=== PATIENT | female | born 1945 | race Caucasian/White ===

== ENCOUNTER 2017-12-07 20:23 | Inpatient (IN) | payer MEDICARE ==
[~2017-12-07] VITALS: Ht 157.5 cm; Wt 100.8 kg
[~2017-12-07 20:23] MED LIST: ALLO300T2 PO; CLON0.1T PO; DICL1GEL7 TOPICAL; DICY10CA12 PO; ECASA81 PO; ENAL20TA PO; ESOM1CAP16 PO; FURO40TA PO; GABA600T PO; HYDR1SOL6 PO; INSU100V SQ; LEVO88TA2 PO; METO2.5T PO; POTA8CAP PO; PROP60TA PO; ROPI0.25 PO; SPIR50TA PO; SULF500T3 PO; SYSTSOL EACH EYE; VITA1000 PO; VITA250T3 PO; [UNRECOGNIZED DRUG - OTHER] PO
[2017-12-07 20:34] VITALS: BP 134/61; PULSE 59; RESP 4; TEMP 98.5; O2SAT 97
[2017-12-07] MEDS ORDERED: DICY10CA12 PO (20:50)
--- NOTE | 2017-12-07 20:56 | PD ---
HPI Chief Complaint: Syncope/Near-Syncope Time Seen by Provider: 20:36 Travel History International Travel<30 days: No Contact w/Intl Traveler<30days: No Traveled to known affect area: No History of Present Illness HPI Patient is a 72-year-old female lives at home she's been getting progressively more confused and weak at home she feels generalized malaise confused her doctor called her and told her her blood test showed her ammonia level was excessively high. This is the first time it is happened to her and she is not on lactulose. Patient comes to the ER paramedics report that she was hypotensive until laid supine . In stretcher laying flat on arrival her pressure is 134/70 and she is able to converse with me and tell me her history, however she is listless sighing and moments of forgetfulness.. past medical history is hepatitis C from transfusion and she has a history of UTIs in the past as well. Pt lab work was done by her PCP few days ago. PFSH Past Medical History Hx Anticoagulant Therapy: No Arthritis: Yes Autoimmune Disease: No Anxiety: Yes Depression: No Heart Rhythm Problems: Yes (murmur irregular beat) Cancer: Yes (LIVER) Cardiovascular Problems: Yes High Cholesterol: Yes Chemotherapy: Yes Chest Pain: No Congestive Heart Failure: No Cirrhosis: Yes Cerebrovascular Accident: Yes Diabetes: Yes Patient Takes Glucophage: No Diminished Hearing: No Endocrine: Yes (HYPOTHYROID) Gastrointestinal Disorders: Yes GERD: Yes Genitourinary: Yes Headaches: Yes Hepatitis: Yes (CIRRHOSIS, HEPATITIS C) Hiatal Hernia: Yes Hypertension: Yes Immune Disorder: Yes (HX CHEMO) Kidney Stones: No Musculoskeletal: Yes (OSTEOARTHRITIS, OSTEOPOROSIS, FIBROMYALGIA) Neurologic: Yes (NEUROPATHY, HX CVA, TIA X2) Psychiatric: Yes Reproductive: No Respiratory: No Migraines: No Radiation Therapy: No Renal Failure: No Seizures: No Thyroid Disease: Yes Ulcer: No Influenza Vaccination: Yes : 5 Para: 3 Miscarriage: 2 Past Surgical History Abdominal Surgery: Yes (CHOLECYSTECOMY, APPENDECTOMY) AICD: No Appendectomy: Yes Arteriovenous Shunt: No Cardiac Surgery: No Cholecystectomy: Yes Ear Surgery: No Endocrine Surgery: No Eye Surgery: No Genitourinary Surgery: No Gynecologic Surgery: Yes (ARACELI) Hysterectomy: Yes (FULL) Insulin Pump: No Joint Replacement: No Neurologic Surgery: No Oral Surgery: No Pacemaker: No Other Surgery: Yes (TUMORS UNDER BILATERAL ARMS) Social History Alcohol Use: No Tobacco Use: No Substance Use: No Allergies-Medications (Allergen,Severity, Reaction): Coded Allergies: No Known Allergies (Unverified , 12/01/17) Reported Meds & Prescriptions Reported Meds & Active Scripts Active Reported Dicyclomine (Dicyclomine HCl) 10 Mg Cap 10 Mg PO DAILY Potassium Chloride ER (Potassium Chloride) 8 Meq Cap 8 Meq PO DAILY Metolazone 2.5 Mg Tab 2.5 Mg PO DAILY Ropinirole 0.25 Mg Tab 0.25 Mg PO HS Vitamin C (Ascorbic Acid) 250 Mg Tab 1,000 Mg PO DAILY Vitamin D-1000 (Cholecalciferol) 1,000 Unit Tab 1,000 Units PO BID Clonidine (Clonidine HCl) 0.1 Mg Tab 0.1 Mg PO BID Spironolactone 50 Mg Tab 50 Mg PO DAILY Propranolol (Propranolol HCl) 60 Mg Tab 60 Mg PO DAILY Levothyroxine (Levothyroxine Sodium) 88 Mcg Tab 88 Mcg PO DAILY Foltx (q-Hdvqgulobdnj-Kddhumf B6-Vitmin B12) 1.13-25-2 Mg Tab 1 Tab PO DAILY Humalog Mix 75-25 Inj (Insulin Lispro Protam/Lispro Human) 1,000 Unit/10 Ml Susp 90 Units SQ BID Hydrocodon-Acetamin 7.5-325/15 (Hydrocodone/Acetaminophen) 7.5 Mg-325 Mg/15 Ml ( 15 Ml) Solution 1 Tab PO DAILY Gabapentin 600 Mg Tab 600 Mg PO TID Furosemide 40 Mg Tab 40 Mg PO DAILY Esomeprazole DR 40 Mg Capdr 40 Mg PO DAILY Enalapril (Enalapril Maleate) 20 Mg Tab 20 Mg PO BID Diclofenac Topical 1% Gel 1 Applic TOPICAL QID Aspirin DR (Aspirin) 81 Mg Tabdr 81 Mg PO DAILY Allopurinol 300 Mg Tab 300 Mg PO DAILY Review of Systems ROS Limitations: Altered Mental Status, Other: (confusion . ) Except as stated in HPI: all other systems reviewed are Neg Musculoskeletal: Positive: Myalgias, Weakness Neurologic: Positive: Change in Mentation Physical Exam Narrative GENERAL: Mildly obese awake slight confusion but able to relate a good history SKIN: Warm and dry. HEAD: Atraumatic. Normocephalic. EYES: Pupils equal and round. No scleral icterus. No injection or drainage. ENT: No nasal bleeding or discharge. Mucous membranes pink and moist. NECK: Trachea midline. No JVD. CARDIOVASCULAR: Regular rate and rhythm. RESPIRATORY: No accessory muscle use. Clear to auscultation. Breath sounds equal bilaterally. GASTROINTESTINAL: Abdomen obese mild epigastric, slightly distended. Hepatic and splenic margins not palpable. MUSCULOSKELETAL: Extremities without clubbing, cyanosis, or edema. No obvious deformities. NEUROLOGICAL: Awake and alert. No obvious cranial nerve deficits. Motor grossly within normal limits. Five out of 5 muscle strength in the arms and legs. Normal speech. PSYCHIATRIC: Appropriate mood and affect; insight and judgment normal. Data Data Last Documented VS Vital Signs Date Time Temp Pulse Resp B/P (MAP) Pulse Ox O2 Delivery O2 Flow Rate FiO2 12/07/17 22:00 61 16 123/75 (91) 99 Room Air 12/07/17 20:34 98.5 Orders Orders Electrocardiogram (12/07/17 20:37) Complete Blood Count With Diff (12/07/17 20:37) Comprehensive Metabolic Panel (12/07/17 20:37) Ckmb (Isoenzyme) Profile (12/07/17 20:37) Troponin I (12/07/17 20:37) B-Type Natriuretic Peptide (12/07/17 20:37) Lipase (12/07/17 20:37) Magnesium (Mg) (12/07/17 20:37) Ammonia (12/07/17 20:37) Thyroid Stimulating Hormone (12/07/17 20:37) Phosphorus (Po4) (12/07/17 20:37) Chest, Single Ap (12/07/17 20:37) Lactulose Liq (Lactulose Liq) (12/07/17 21:00) Lactic Acid (12/07/17 21:06) Urinalysis - C+S If Indicated (12/07/17 21:37) Urine Culture (12/07/17 21:45) Ceftriaxone Inj (Rocephin Inj) (12/07/17 22:30) Admit To Inpatient (12/07/17 ) Vital Signs (Adult) Q4H (12/07/17 22:49) Activity Oob With Assistance (12/07/17 22:49) [employer] / Telemetry .CONTINUOUS (12/07/17 22:49) Sodium Chloride 0.9% Flush (Ns Flush) (12/07/17 23:00) Sodium Chloride 0.9% Flush (Ns Flush) (12/08/17 09:00) Comprehensive Metabolic Panel (12/08/17 06:00) Complete Blood Count With Diff (12/08/17 06:00) Pt Request For Service (12/07/17 22:49) Case Management Consult (12/07/17 22:49) Naloxone Inj (Narcan Inj) (12/07/17 23:00) Inpatient Certification (12/07/17 ) Lactulose Liq (Lactulose Liq) (12/08/17 09:00) Lactulose Liq (Lactulose Liq) (12/08/17 03:00) Admit Order (Ed Use Only) (12/07/17 22:49) Labs Laboratory Tests Test 12/07/17 20:54 12/07/17 21:15 12/07/17 21:45 White Blood Count 13.0 TH/MM3 Red Blood Count 3.43 MIL/MM3 Hemoglobin 11.9 GM/DL Hematocrit 35.5 % Mean Corpuscular Volume 103.3 FL Mean Corpuscular Hemoglobin 34.6 PG Mean Corpuscular Hemoglobin Concent 33.5 % Red Cell Distribution Width 13.8 % Platelet Count 317 TH/MM3 Mean Platelet Volume 8.7 FL Neutrophils (%) (Auto) 69.9 % Lymphocytes (%) (Auto) 17.2 % Monocytes (%) (Auto) 9.8 % Eosinophils (%) (Auto) 2.4 % Basophils (%) (Auto) 0.7 % Neutrophils # (Auto) 9.1 TH/MM3 Lymphocytes # (Auto) 2.2 TH/MM3 Monocytes # (Auto) 1.3 TH/MM3 Eosinophils # (Auto) 0.3 TH/MM3 Basophils # (Auto) 0.1 TH/MM3 CBC Comment DIFF FINAL Differential Comment Blood Urea Nitrogen 37 MG/DL Creatinine 1.70 MG/DL Random Glucose 147 MG/DL Total Protein 8.3 GM/DL Albumin 3.4 GM/DL Calcium Level 9.4 MG/DL Phosphorus Level 3.1 MG/DL Magnesium Level 1.9 MG/DL Alkaline Phosphatase 186 U/L Aspartate Amino Transf (AST/SGOT) 67 U/L Alanine Aminotransferase (ALT/SGPT) 45 U/L Total Bilirubin 0.7 MG/DL Sodium Level 138 MEQ/L Potassium Level 4.6 MEQ/L Chloride Level 100 MEQ/L Carbon Dioxide Level 31.2 MEQ/L Anion Gap 7 MEQ/L Estimat Glomerular Filtration Rate 30 ML/MIN Ammonia 118 MCMOL/L Total Creatine Kinase 99 U/L Troponin I 0.02 NG/ML B-Type Natriuretic Peptide 70 PG/ML Lipase 380 U/L Thyroid Stimulating Hormone 3rd Gen 5.210 uIU/ML Lactic Acid Level 2.0 mmol/L Urine Color YELLOW Urine Turbidity HAZY Urine pH 5.0 Urine Specific [place] 1.012 Urine Protein NEG mg/dL Urine Glucose (UA) TRACE mg/dL Urine Ketones NEG mg/dL Urine Occult Blood NEG Urine Nitrite NEG Urine Bilirubin NEG Urine Urobilinogen LESS THAN 2.0 MG/DL Urine Leukocyte Esterase LARGE Urine WBC 32 /hpf Urine WBC Clumps FEW Urine Squamous Epithelial Cells <1 /hpf Urine Renal Epithelial Cells <1 /hpf Urine Bacteria MANY /hpf Urine Granular Casts 1 /lpf Microscopic Urinalysis Comment CATH-CULTURE IND MDM Medical Decision Making Medical Screen Exam Complete: Yes Emergency Medical Condition: Yes Differential Diagnosis Patient is in the ER confused secondary to encephalopathy secondary to liver failure or altered mentally from UTI or sepsis or medication overdose or other causes of altered mental status including hypoglycemia , fever other Narrative Course Patient's ammonia comes back at 118 she is given lactulose her urine is infected she is given ceftriaxone and admitted to the medical service for further evaluation and management of her encephalopathy secondary to elevated ammonia levels as well as seeing of her urinary tract infection is Adding to her confusion as well both will be treated in the ER and a continued to be treated on the floor for further about Diagnosis Primary Impression: Metabolic encephalopathy Additional Impressions: UTI (urinary tract infection) Qualified Codes: N30.00 - Acute cystitis without hematuria Altered mental status Qualified Codes: R41.0 - Disorientation, unspecified Admitting Information Admitting Physician Requests: Admit Condition: Stable Isiah Nunes MD Dec 07, 2017 20:56
[2017-12-07] MEDS ORDERED: LACTULOSE SYRUP 20 GM/30 ML CUP PO ONE (21:00)
[2017-12-07 21:09] LABS: AUTOMATED NEUTROPHIL # 9.1 TH/MM3 (1.8-7.7); BASOPHIL # 0.1 TH/MM3 (0-0.2); BASOPHIL % 0.7 % (0.0-2.0); EOSINOPHIL # 0.3 TH/MM3 (0-0.4); EOSINOPHIL % 2.4 % (0.0-4.0); HEMATOCRIT 35.5 % (35.0-46.0); HEMOGLOBIN 11.9 GM/DL (11.6-15.3); LYMPH % 17.2 % (9.0-44.0); LYMPHOCYTE # 2.2 TH/MM3 (1.0-4.8); MEAN CELL VOLUME 103.3 FL (80.0-100.0); MEAN CORPUSCULAR HEMOGLOBIN 34.6 PG (27.0-34.0); MEAN CORPUSCULAR HGB CONC 33.5 % (32.0-36.0); MEAN PLATELET VOLUME 8.7 FL (7.0-11.0); MONO % 9.8 % (0.0-8.0); MONOCYTE # 1.3 TH/MM3 (0-0.9); NEUT % 69.9 % (16.0-70.0); PLATELET COUNT 317 TH/MM3 (150-450); RED BLOOD COUNT 3.43 MIL/MM3 (4.00-5.30); RED CELL DISTRIBUTION WIDTH 13.8 % (11.6-17.2)
--- NOTE | 2017-12-07 21:45 | RADRPT ---
EXAM DATE/TIME: 12/07/2017 21:18 [facility] COMPARISON: CHEST SINGLE AP, June 23, 2015, 16:51. INDICATIONS : Short of breath. MEDICAL HISTORY : None. SURGICAL HISTORY : None. ENCOUNTER: Initial ACUITY: 1 day PAIN SCORE: 0/10 LOCATION: Bilateral chest FINDINGS: A single view of the chest demonstrates the lungs to be symmetrically aerated without evidence of mas s, infiltrate or effusion. Mild cardiomegaly without pulmonary vascular engorgement. Osseous structur es are intact. CONCLUSION: Mild cardiomegaly without pulmonary vascular engorgement. Brendon Monroe Jr., MD on December 07, 2017 at 21:42 Board Certified Radiologist. This report was verified electronically.
[2017-12-07 21:49] LABS: ALBUMIN 3.4 GM/DL (3.4-5.0); ALKALINE PHOSPHATASE 186 U/L (45-117); ALT (GPT) 45 U/L (10-53); AST (GOT) 67 U/L (15-37); BICARBONATE 31.2 MEQ/L (21.0-32.0); BLOOD UREA NITROGEN 37 MG/DL (7-18); CALCIUM 9.4 MG/DL (8.5-10.1); CHLORIDE 100 MEQ/L (98-107); GLOMERULAR FILTRATION RATE 30 ML/MIN (>89); GLUCOSE,RANDOM 147 MG/DL (74-106); LIPASE 380 U/L (73-393); MAGNESIUM 1.9 MG/DL (1.5-2.5); PHOSPHORUS 3.1 MG/DL (2.5-4.9); SODIUM (NA) 138 MEQ/L (136-145); TOTAL BILIRUBIN ADULT 0.7 MG/DL (0.2-1.0); TOTAL PROTEIN 8.3 GM/DL (6.4-8.2); TROPONIN I 0.02 NG/ML (0.02-0.05)
[2017-12-07 22:00] VITALS: BP 123/75; PULSE 61; RESP 16; O2SAT 99
[2017-12-07 22:01] LABS: BACTERIA, URINE MANY /hpf; BILIRUBIN, URINE NEG (NEG); BLOOD, URINE NEG (NEG); GLUCOSE,URINE TRACE mg/dL (NEG); KETONE, URINE NEG (NEG); NITRITE,URINE NEG (NEG); RENAL EPITHELIAL CELLS <1 /hpf; SQUAMOUS EPITHELIAL CELL URINE <1 /hpf (0-5); URINE COLOR YELLOW (YELLW/STRAW); URINE LEUKOCYTE ESTERASE LARGE (NEG); WHITE BLOOD CELL CLUMPS FEW
[2017-12-07] MEDS ORDERED: cefTRIAXone INJ 1,000 MG in SODIUM CHLORIDE 0.9% INJ 100 ML IV ONE (22:30)
[2017-12-07] MEDS ORDERED: SODIUM CHLORIDE 0.9% FLUSH 10 ML FLUSH IV FLUSH PRN (23:00)
[2017-12-07] MEDS ORDERED: NALOXONE HCL 0.4 MG/ML AMP IV PUSH PRN (23:00)
[2017-12-07 23:08] VITALS: BP 110/58; PULSE 67; RESP 16; O2SAT 97
[2017-12-08] VITALS (7 sets, daily range): BP systolic 114–144; BP diastolic 54–60; PULSE 57–71; RESP 18; TEMP 96.2–98.4; O2SAT 94–99
[2017-12-08] MEDS ORDERED: LACTULOSE SYRUP 20 GM/30 ML CUP PO ONE ×2 (03:00→04:15)
--- NOTE | 2017-12-08 04:17 | HHI.HP ---
HPI Service [facility] Primary Care Physician Unknown Admission Diagnosis Elevated AMMONIA Diagnoses: Travel History International Travel<30 Days: No Contact w/Intl Traveler <30 Da: No Traveled to Known Affected Are: No History of Present Illness History from patient, ER physician communication, and review of medical records. Patient's was also present at the bedside. Patient is somewhat drowsy at the time of my exam. She however would answer questions appropriately when she wakes up. She reports that she has been out of it which is why she came to hospital. She admits she couldn't remember much. When asked, long this has been going on, she reports this pain for a while. Admits to being constipated. Denies any fever. Also complains about abdominal pain diffusely. Has had back pains and has been having outpatient workup with her doctors for this back pain. She has had multiple scans and was told she has osteoporosis, spinal fluid leakage. She also vomited 2 times in the past one week or so. Denies any blood in her stool or urine or vomitus. Patient is noted to have asterixis on examination. When asked about this, both patient and said that this has been going on for a while and she was even diagnosed with Parkinson's because of this. She has also been falling quite a bit and has been having unsteady gait. Her PCP had sent for ammonia levels last week and she finally had it done yesterday or Tuesday and was called back from PCP office to go to GI doctors office because of the lab results revealing ammonia level of 198. However she wasn't able to get an appointment with his GI doctors and therefore was sent to ER. Patient has history of liver cirrhosis secondary to hepatitis C. She was treated with Pegasys for hepatitis C. She has not been on any lactulose at home. Patient denies any prior history of GI bleed. She believes she has had paracenteses twice. Review of Systems Except as stated in HPI: all other systems reviewed are Neg Past Family Social History Past Medical History Hypertension Diabetes CAD CHF Hepatitis C Liver cirrhosis TIAs 2 Hypothyroidism Past Surgical History Cholecystectomy Appendectomy Hysterectomy EGDs and colonoscopies Allergies: Coded Allergies: No Known Allergies (Unverified , 12/01/17) Family History grandparents - all had cancer Social History Denies smoking/alcohol abuse/drug abuse. Physical Exam Vital Signs Vital Signs Date Time Temp Pulse Resp B/P (MAP) Pulse Ox O2 Delivery O2 Flow Rate FiO2 12/08/17 00:22 97.6 60 18 127/59 (81) 99 12/07/17 23:50 12/07/17 23:08 67 16 110/58 (75) 97 Room Air 12/07/17 22:00 61 16 123/75 (91) 99 Room Air 12/07/17 20:34 98.5 59 4 134/61 (85) 97 Physical Exam GENERAL: This is a well-nourished, well-developed patient, in no apparent distress. SKIN: No rashes, ecchymoses or lesions. Cool and dry. HEAD: Atraumatic. Normocephalic. No temporal or scalp tenderness. EYES: No scleral icterus. No injection or drainage. ENT: Nose without bleeding, purulent drainage or septal hematoma. Airway patent. NECK: Trachea midline. No JVD . Supple, nontender, no meningeal signs. CARDIOVASCULAR: Regular rate and rhythm without murmurs, gallops, or rubs. RESPIRATORY: Clear to auscultation. Breath sounds equal bilaterally. No wheezes , rales, or rhonchi. GASTROINTESTINAL: Abdomen soft, non-tender, nondistended. No guarding. MUSCULOSKELETAL: Extremities without clubbing, cyanosis, or edema. . No calf tenderness. NEUROLOGICAL: Quite sleepy. alert when she wakes up. Asterixis present .Motor and sensory grossly within normal limits.. Normal speech. Laboratory Laboratory Tests Test 12/07/17 20:54 12/07/17 21:15 12/07/17 21:45 White Blood Count 13.0 Red Blood Count 3.43 Hemoglobin 11.9 Hematocrit 35.5 Mean Corpuscular Volume 103.3 Mean Corpuscular Hemoglobin 34.6 Mean Corpuscular Hemoglobin Concent 33.5 Red Cell Distribution Width 13.8 Platelet Count 317 Mean Platelet Volume 8.7 Neutrophils (%) (Auto) 69.9 Lymphocytes (%) (Auto) 17.2 Monocytes (%) (Auto) 9.8 Eosinophils (%) (Auto) 2.4 Basophils (%) (Auto) 0.7 Neutrophils # (Auto) 9.1 Lymphocytes # (Auto) 2.2 Monocytes # (Auto) 1.3 Eosinophils # (Auto) 0.3 Basophils # (Auto) 0.1 CBC Comment DIFF FINAL Differential Comment Blood Urea Nitrogen 37 Creatinine 1.70 Random Glucose 147 Total Protein 8.3 Albumin 3.4 Calcium Level 9.4 Phosphorus Level 3.1 Magnesium Level 1.9 Alkaline Phosphatase 186 Aspartate Amino Transf (AST/SGOT) 67 Alanine Aminotransferase (ALT/SGPT) 45 Total Bilirubin 0.7 Sodium Level 138 Potassium Level 4.6 Chloride Level 100 Carbon Dioxide Level 31.2 Anion Gap 7 Estimat Glomerular Filtration Rate 30 Ammonia 118 Total Creatine Kinase 99 Troponin I 0.02 B-Type Natriuretic Peptide 70 Lipase 380 Thyroid Stimulating Hormone 3rd Gen 5.210 Lactic Acid Level 2.0 Urine Color YELLOW Urine Turbidity HAZY Urine pH 5.0 Urine Specific [place] 1.012 Urine Protein NEG Urine Glucose (UA) TRACE Urine Ketones NEG Urine Occult Blood NEG Urine Nitrite NEG Urine Bilirubin NEG Urine Urobilinogen LESS THAN 2.0 Urine Leukocyte Esterase LARGE Urine WBC 32 Urine WBC Clumps FEW Urine Squamous Epithelial Cells <1 Urine Renal Epithelial Cells <1 Urine Bacteria MANY Urine Granular Casts 1 Microscopic Urinalysis Comment CATH-CULTURE IND Date/Time Source Procedure Growth Status 12/07/17 21:45 Urine Clean Catch Urine Culture Pending Worksheet Result Diagram: 12/07/17205312/07/172053 Imaging Last 48 hours Impressions Chest X-Ray 12/07/172036 Signed Impressions: Service Date/Time: Thursday, December 07, 2017 21:18 - CONCLUSION: Mild cardiomegaly without pulmonary vascular engorgement. rBendon Monroe Jr., MD Capdexteri VTE Risk Assessment Caprini VTE Risk Assessment: Mod/High Risk (score >= 2) Caprini Risk Assessment Model Point Value = 1 Point Value = 2 Point Value = 3 Point Value = 5 Age 41-60 Minor surgery BMI > 25 kg/m2 Swollen legs Varicose veins or History of unexplained or recurrent spontaneous Oral contraceptives or hormone replacement Sepsis (< 1 month) Serious lung disease, including pneumonia (< 1 month) Abnormal pulmonary function Acute myocardial infarction Congestive heart failure (< 1 month) History of inflammatory bowel disease Medical patient at bed rest Age 61-74 Arthroscopic surgery Major open surgery (> 45 min) Laparoscopic surgery (> 45 min) Malignancy Confined to bed (> 72 hours) Immobilizing plaster cast Central venous access Age >= 75 History of VTE Family history of VTE Factor V Leiden Prothrombin [id number] Lupus anticoagulant Anticardiolipin antibodies Elevated serum homocysteine Heparin-induced thrombocytopenia Other congenital or acquired thrombophilia Stroke (< 1 month) Elective arthroplasty Hip, pelvis, or leg fracture Acute spinal cord injury (< 1 month) Prophylaxis Regimen Total Risk Factor Score Risk Level Prophylaxis Regimen 0-1 Low Early ambulation 2 Moderate Order ONE of the following: *Sequential Compression Device (SCD) *Heparin 5000 units SQ BID 3-4 Higher Order ONE of the following medications: *Heparin 5000 units SQ TID *Enoxaparin/Lovenox 40 mg SQ daily (WT < 150 kg, CrCl > 30 mL/min) *Enoxaparin/Lovenox 30 mg SQ daily (WT < 150 kg, CrCl > 10-29 mL/min) *Enoxaparin/Lovenox 30 mg SQ BID (WT < 150 kg, CrCl > 30 mL/min) AND/OR *Sequential Compression Device (SCD) 5 or more Highest Order ONE of the following medications: *Heparin 5000 units SQ TID (Preferred with Epidurals) *Enoxaparin/Lovenox 40 mg SQ daily (WT < 150 kg, CrCl > 30 mL/min) *Enoxaparin/Lovenox 30 mg SQ daily (WT < 150 kg, CrCl > 10-29 mL/min) *Enoxaparin/Lovenox 30 mg SQ BID (WT < 150 kg, CrCl > 30 mL/min) AND *Sequential Compression Device (SCD) Assessment and Plan Assessment and Plan Impression: Hepatic encephalopathy UTI Mild acute renal insufficiency on CKD Hypertension Diabetes CAD CHF Hepatitis C Liver cirrhosis TIAs 2 Hypothyroidism Plan: Patient received lactulose 30 mL single ER. Additional 30 mL was given about 2 hours later. Patient still did not move her bowels despite above. Therefore given a third dose of lactulose now. We'll have scheduled 4 times a day dosing of lactulose. Nursing staff informed. Patient would need to have diarrhea. Resume her home beta blockers, diuretics. GI consult. We'll continue Rocephin for UTI. Other Rocephin could be related to altered mental status, her exam is clearly is from hepatic encephalopathy and has not worsened with use of Rocephin. She does have renal failure which limits our choices of antibiotics. Resume rest of her home medications. We'll monitor fingersticks and cover with sliding scale coverage. Doubt that patient would be eating well while in hospital. Therefore hold long-acting insulin and oral hypoglycemics. Input/output. DVT prophylaxis with SCD. GI prophylaxis on pantoprazole. Discussed Condition With Patient, at the bedside, nursing staff, ER physician Physician Certification 2 Midnight Certification Type: Admission for Inpatient Services Order for Inpatient Services The services are ordered in accordance with Medicare regulations or non- Medicare payer requirements, as applicable. In the case of services not specified as inpatient-only, they are appropriately provided as inpatient services in accordance with the 2-midnight benchmark. Estimated LOS (days): 2 days is the estimated time the patient will need to remain in the hospital, assuming treatment plan goals are met and no additional complications. Post-Hospital Plan: Home Quinn Crowley MD Dec 08, 2017 04:17
[2017-12-08] MEDS: LEVOTHYROXINE SODIUM 88 MCG TAB PO SCH (06:26)
[2017-12-08 08:59] LABS: AUTOMATED NEUTROPHIL # 7.6 TH/MM3 (1.8-7.7); BASOPHIL # 0.1 TH/MM3 (0-0.2); BASOPHIL % 0.7 % (0.0-2.0); EOSINOPHIL # 0.3 TH/MM3 (0-0.4); EOSINOPHIL % 2.5 % (0.0-4.0); HEMATOCRIT 33.6 % (35.0-46.0); HEMOGLOBIN 11.4 GM/DL (11.6-15.3); LYMPHOCYTE # 1.7 TH/MM3 (1.0-4.8); MEAN CELL VOLUME 103.8 FL (80.0-100.0); MEAN CORPUSCULAR HEMOGLOBIN 35.2 PG (27.0-34.0); MEAN CORPUSCULAR HGB CONC 33.9 % (32.0-36.0); MEAN PLATELET VOLUME 8.5 FL (7.0-11.0); MONO % 9.5 % (0.0-8.0); NEUT % 71.3 % (16.0-70.0); PLATELET COUNT 247 TH/MM3 (150-450); RED BLOOD COUNT 3.24 MIL/MM3 (4.00-5.30); RED CELL DISTRIBUTION WIDTH 13.1 % (11.6-17.2); WHITE BLOOD COUNT 10.7 TH/MM3 (4.0-11.0)
[2017-12-08] MEDS: SPIRONOLACTONE 50 MG TAB PO SCH (09:00)
[2017-12-08] MEDS: PROPRANOLOL HCL LA 60 MG CAP PO SCH (09:00)
[2017-12-08] MEDS: ENALAPRIL MALEATE 10 MG TAB PO SCH ×2 (09:00→22:14)
[2017-12-08] MEDS: cloNIDine HCL 0.1 MG TAB PO SCH ×2 (09:00→22:14)
[2017-12-08] MEDS: METOLAZONE 2.5 MG TAB PO SCH (09:00)
[2017-12-08 09:04] LABS: BICARBONATE 28.5 MEQ/L (21.0-32.0); BLOOD UREA NITROGEN 34 MG/DL (7-18); CALCIUM 9.2 MG/DL (8.5-10.1); CHLORIDE 102 MEQ/L (98-107); CREATININE 1.44 MG/DL (0.50-1.00); GLOMERULAR FILTRATION RATE 36 ML/MIN (>89); GLUCOSE,RANDOM 217 MG/DL (74-106); SODIUM (NA) 139 MEQ/L (136-145)
[2017-12-08 09:05] LABS: ALT (GPT) 44 U/L (10-53); AST (GOT) 64 U/L (15-37)
[2017-12-08 09:08] LABS: ALKALINE PHOSPHATASE 164 U/L (45-117); TOTAL BILIRUBIN ADULT 0.7 MG/DL (0.2-1.0); TOTAL PROTEIN 7.1 GM/DL (6.4-8.2)
[2017-12-08] MEDS: PANTOPRAZOLE SOD 40 MG DELAYED RELEASE TAB PO SCH (09:10)
[2017-12-08] MEDS: POTASSIUM CHLORIDE 8 MEQ CONTROLLED RELEASE TAB PO SCH (09:10)
[2017-12-08] MEDS: FUROSEMIDE 40 MG TAB PO SCH (09:10)
[2017-12-08] MEDS: LACTULOSE SYRUP 20 GM/30 ML CUP PO SCH ×4 (09:10→22:15)
[2017-12-08] MEDS: ALLOPURINOL 300 MG TAB PO SCH (09:10)
[2017-12-08] MEDS: ASPIRIN EC 81 MG TABEC PO SCH (09:10)
[2017-12-08] MEDS: SODIUM CHLORIDE 0.9% FLUSH 10 ML FLUSH IV FLUSH SCH ×2 (09:15→22:15)
[2017-12-08] MEDS: cefTRIAXone INJ 1,000 MG in SODIUM CHLORIDE 0.9% INJ 100 ML IV SCH (09:15)
[2017-12-08] MEDS ORDERED: DEXTROSE 50% IN WATER 50 ML VIAL(D50) IV PUSH PRN (10:45)
[2017-12-08] MEDS ORDERED: GLUCAGON 1 MG/ML VIAL OTHER PRN (10:45)
--- NOTE | 2017-12-08 10:53 | MB ---
cc: EDWARD REZA M.D., LOUIS M. MD MOUSSLY, SOUHEIL DATE OF CONSULTATION 12/08/[address] Strauss REASON FOR CONSULTATION Hepatic encephalopathy HISTORY This is a very pleasant 72-year-old female who was admitted yesterday with a recent change in mental status. She is with her in the room. She has a history of cirrhosis from hepatitis C and was recently evaluated a few months ago by Dr. Reza. She has been noted to have asterixis in the office, but had a perfect 30 out of 30 on the mini mental state exam and there was no nystagmus. She also had an upper endoscopy in August of last year and there was no sign of portal hypertension. She does have a short segment Zeng's esophagus. Her last colonoscopy was in 2014. She states that she has had longstanding diabetes and has had a few strokes in the past. She was recently evaluated by neurology, Dr. Ward, with though she had Parkinson's disease according to the . She has had some confusion problems intermittently for a while, but it has been worse the last few days. She also has been falling frequently at home over the past week or two. She has chronic knee pain and back pain, but states that the surgeons do not want to operate on her because of her liver disease and diabetes. She has been getting narcotic analgesics for pain management. She states that about a month ago she was on low-dose morphine and more recently went back to oral oxycodone. She does have a lifelong history of constipation and it is normal for her to have a bowel movement once a week. She typically takes MiraLax to help with her constipation. Her colonoscopy in 2014 was negative. SOCIAL HISTORY The patient is . She does not smoke or drink alcohol. ALLERGIES She has no known drug allergies. PAST MEDICAL HISTORY Her medical history is remarkable for: 1. Longstanding diabetes mellitus and she is on insulin for That. 2. History of hypertension. 3. History of congestive heart failure that she states was symptomatic in September when she was visiting in [place]. 4. History of hepatitis C with cirrhosis. 5. History of hypothyroidism. PAST SURGICAL HISTORY 1. She has had a prior cholecystectomy. 2. Appendectomy 3. Hysterectomy FAMILY HISTORY Noncontributory except for various malignancies. MEDICATIONS Her medications include: 1. Requip 0.25 mg at bedtime. 2. Allopurinol 300 mg daily 3. Ecotrin 81 mg daily 4. Catapres 0.1 mg twice daily 5. Vasotec 20 mg twice daily 6. Lasix 40 mg daily 7. Metolazone 2.5 mg daily 8. Spirolactone 50 mg daily 9. Potassium chloride 8 mEq daily 10. Protonix 40 mg daily 11. Inderal LA 60 mg daily 12. Synthroid 88 mcg daily 13. She has been started on lactulose 30 cc q.i.d. 14. Ceftriaxone one gram q24h REVIEW OF SYSTEMS Remarkable for her chronic back and knee pain. She also states she has been having lower abdominal pains off and on, but no clear relationship to eating or bowel movements. No nausea or vomiting. No dysphagia. No recent respiratory symptoms. No fever or chills. She did have a large bowel movement this morning. PHYSICAL EXAM This is a well-developed female in no acute distress. VITAL SIGNS: Her blood pressure is 133/58, pulse 62, respirations 18 nonlabored, temperature is 98.40 orally. HEAD, EYES, EARS, NOSE, AND THROAT: Sclerae anicteric. NECK: Supple without masses. LUNGS: Clear to percussion and auscultation. HEART: Heart sounds are regular. ABDOMEN: Rounded, soft with mild nonfocal tenderness. No rebound or guarding. She has some bulging on the right side of her abdomen. No appreciable ascites. EXTREMITIES: She has some puffiness to her ankles, but no pitting edema. SKIN: Warm and dry. NEUROLOGIC: She was alert and oriented, although it took her a few seconds to guess the correct month and she was off by one day for the day of the week. She thought it was Tuesday rather than , but she knew the correct year, knows who she is and knows her location. She also seemed to answer questions very appropriately. She does have asterixis on exam. LABORATORY DATA Her ammonia level was elevated yesterday at 118. She states it was a little higher than that as an outpatient. Her albumin is 3.4, AST 67, ALT 45, total bilirubin 0.7, creatinine was 1.7 and it came down to 1.44 and BUN 37 down to 34. Electrolytes were unremarkable. Her hemoglobin is 11.4, white count 10.7, MCV of 103.8 and interestingly she has a normal platelet count of 247,000. Urinalysis revealed 32 WBCs and many bacteria. Chest x-ray shows mild cardiomegaly with pulmonary vascular engorgement. IMPRESSION 1. Altered mental status. Patient with an interesting history of prior TIAs and cirrhosis. She does have asterixis and an elevated ammonia level, but she does not behave like the typical patient with hepatic encephalopathy. She was noted to have asterixis in the office and scored perfectly on the mini mental state exam. There is some question as to whether she may have some neurological disease like Parkinson's. She is also at risk for strokes. Possible precipitating factors for encephalopathy include her constipation, current urinary tract infection and possibly her medication such as her narcotics. Interesting that she has cirrhosis from hepatitis C, but has a normal platelet count. 2. Urinary tract infection. PLAN Agree with lactulose which seems to be moving her bowels well. Titrate the dose to produce two to three soft stools a day. We will see if once her ammonia level normalizes if there is any improvement in her asterixis and her mental status. If necessary, Xifaxan could be added as well. Agree with treating her underlying UTI. I will follow with you. Thank you for this consult. MD EVARISTO Curiel/BRIGID /10:20 AM /10:34 AM
[2017-12-08] MEDS: INSULIN ASPART SUPPLEMENTAL SCALE SQ SCH ×3 (12:00→21:00)
[2017-12-08] MEDS: DICYCLOMINE HCL 10 MG CAP PO SCH (12:32)
[2017-12-08] MEDS ORDERED: INSULIN ASPAR PROT 70/30 1,000 UNITS/10 ML VIAL SQ SCH ×2 (16:00→20:00)
--- NOTE | 2017-12-08 17:39 | HHI.PR ---
Addendum to Inpatient Note Addendum Reason: Additional Documentation Additional Information Pt tells me that she has had 7 BMs since arrival. She has already taken 3 doses of lactulose today. Pt wishes to decrease the dose. She understands it will help w the elevated ammonia levels. Pt had some nausea earlier but no vomiting. on exam: pleasant female. lungs are clear, HR rrr w no obvious murmurs Will decrease dose of lactulose to TID as pt has already had 7 large loose stools and she is frustrated w having to go so often. Appreciate recs from GI. Continue to monitor. Repeat ammonia level in AM Jess Strauss MD Dec 08, 2017 17:39
--- NOTE | 2017-12-08 22:18 | EKG ---
Date Performed: 12/07/2017 Time Performed: 20:40:19 PTAGE: 72 years EKG: Sinus rhythm WITH SINUS ARRHYTHMIA MINIMAL VOLTAGE CRITERIA FOR LVH, CONSIDER NORMAL VARIANT BORDERLINE ECG PREVIOUS TRACING : 06/23/2015 17.07 Since previous tracing, no significant change noted DOCTOR: Hubert Kidd Interpretating Date/Time 12/08/2017 22:18:07
[2017-12-09 03:27] VITALS: BP 112/48; PULSE 77; RESP 18; TEMP 97.3; O2SAT 97
[2017-12-09] MEDS: LEVOTHYROXINE SODIUM 88 MCG TAB PO SCH (07:00)
[2017-12-09 07:30] LABS: AUTOMATED NEUTROPHIL # 7.4 TH/MM3 (1.8-7.7); BASOPHIL # 0.1 TH/MM3 (0-0.2); BASOPHIL % 0.6 % (0.0-2.0); EOSINOPHIL # 0.2 TH/MM3 (0-0.4); EOSINOPHIL % 2.2 % (0.0-4.0); HEMATOCRIT 32.1 % (35.0-46.0); HEMOGLOBIN 11.2 GM/DL (11.6-15.3); LYMPH % 17.3 % (9.0-44.0); LYMPHOCYTE # 1.8 TH/MM3 (1.0-4.8); MEAN CELL VOLUME 102.7 FL (80.0-100.0); MEAN CORPUSCULAR HEMOGLOBIN 35.9 PG (27.0-34.0); MEAN PLATELET VOLUME 8.6 FL (7.0-11.0); MONO % 8.8 % (0.0-8.0); MONOCYTE # 0.9 TH/MM3 (0-0.9); NEUT % 71.1 % (16.0-70.0); PLATELET COUNT 295 TH/MM3 (150-450); RED BLOOD COUNT 3.13 MIL/MM3 (4.00-5.30); RED CELL DISTRIBUTION WIDTH 13.4 % (11.6-17.2); WHITE BLOOD COUNT 10.5 TH/MM3 (4.0-11.0)
[2017-12-09 07:59] LABS: ALBUMIN 3.1 GM/DL (3.4-5.0); ALKALINE PHOSPHATASE 168 U/L (45-117); ALT (GPT) 49 U/L (10-53); AST (GOT) 67 U/L (15-37); BLOOD UREA NITROGEN 29 MG/DL (7-18); CALCIUM 9.3 MG/DL (8.5-10.1); CHLORIDE 99 MEQ/L (98-107); GLOMERULAR FILTRATION RATE 44 ML/MIN (>89); GLUCOSE,RANDOM 116 MG/DL (74-106); SODIUM (NA) 138 MEQ/L (136-145); TOTAL BILIRUBIN ADULT 0.7 MG/DL (0.2-1.0); TOTAL PROTEIN 7.3 GM/DL (6.4-8.2)
[2017-12-09 08:00] VITALS: BP 137/61; PULSE 63; RESP 18; TEMP 96.7; O2SAT 96
[2017-12-09] MEDS: INSULIN ASPART SUPPLEMENTAL SCALE SQ SCH ×4 (08:00→21:00)
[2017-12-09] MEDS: PROPRANOLOL HCL LA 60 MG CAP PO SCH (09:00)
[2017-12-09] MEDS: METOLAZONE 2.5 MG TAB PO SCH (09:00)
--- NOTE | 2017-12-09 09:05 | HHI.PR ---
Subjective Remarks Pt has a headache, didn't ask for anything "because I didn't know I could". would like some tylenol Objective Vitals Vital Signs Date Time Temp Pulse Resp B/P (MAP) Pulse Ox O2 Delivery O2 Flow Rate FiO2 12/09/17 03:27 97.3 77 18 112/48 (69) 97 12/08/17 23:30 97.6 71 18 127/56 (79) 98 12/08/17 19:04 98.4 69 18 144/60 (88) 97 12/08/17 16:00 96.7 60 18 129/59 (82) 99 12/08/17 12:00 96.2 64 18 126/54 (78) 96 I/O 12/08/17 12/08/17 12/08/17 12/09/17 12/09/17 12/09/17 07:00 15:00 23:00 07:00 15:00 23:00 Intake Total 460 ml 480 ml 720 ml 480 ml Balance 460 ml 480 ml 720 ml 480 ml Intake Oral 360 ml 480 ml 720 ml 480 ml IV Total 100 ml # Voids 1 2 3 3 # Bowel Movements 0 8 4 0 Result Diagram: 12/09/1755 12/09/1755 Imaging Last Impressions Chest X-Ray 12/07/172036 Signed Impressions: Service Date/Time: Thursday, December 07, 2017 21:18 - CONCLUSION: Mild cardiomegaly without pulmonary vascular engorgement. Brendon Monroe Jr., MD Objective Remarks GENERAL: sitting on side of bed, talking w nurses aid EYES: EOMI ENT: Nose without drainage. Airway patent. NECK: Trachea midline. CARDIOVASCULAR: Regular rate and rhythm without murmurs RESPIRATORY: Clear to auscultation. Breath sounds equal bilaterally. No wheezes GASTROINTESTINAL: Abdomen soft, non-tender, nondistended. No guarding. MUSCULOSKELETAL: Extremities without edema. NEUROLOGICAL: Motor and sensory grossly within normal limits. Normal speech. A/P Assessment and Plan Hepatic encephalopathy UTI Mild acute renal insufficiency on CKD Hypertension Diabetes CAD CHF Hepatitis C Liver cirrhosis TIAs 2 Hypothyroidism Plan: will continue lactulose however I have decreased dose to TID as pt already has had 12 BMs GI following. Ammonia levels down to 63. Continue to monitor. Pt complains of a headache, I have added tylenol prn. on her home beta blockers, diuretics. continue Rocephin for UTI. urine cx growing gram neg rods. f/u cultures until final home medications have been resumed. I will go ahead and decrease her insulin dose to 70units BID as pt's BS this morning was in the 120's. continue to monitor fingersticks and cover with sliding scale coverage. DVT prophylaxis with SCD. GI prophylaxis on pantoprazole. Discharge Planning anticipate d/c in 1-2 days Jess Strauss MD Dec 09, 2017 09:05
[2017-12-09] MEDS: cloNIDine HCL 0.1 MG TAB PO SCH ×2 (09:50→20:57)
[2017-12-09] MEDS: ENALAPRIL MALEATE 10 MG TAB PO SCH ×2 (09:50→20:57)
[2017-12-09] MEDS: POTASSIUM CHLORIDE 8 MEQ CONTROLLED RELEASE TAB PO SCH (09:50)
[2017-12-09] MEDS: ASPIRIN EC 81 MG TABEC PO SCH (09:51)
[2017-12-09] MEDS: PANTOPRAZOLE SOD 40 MG DELAYED RELEASE TAB PO SCH (09:51)
[2017-12-09] MEDS: ALLOPURINOL 300 MG TAB PO SCH (09:51)
[2017-12-09] MEDS: FUROSEMIDE 40 MG TAB PO SCH (09:51)
[2017-12-09] MEDS: DICYCLOMINE HCL 10 MG CAP PO SCH (09:51)
[2017-12-09] MEDS: SPIRONOLACTONE 50 MG TAB PO SCH (09:51)
[2017-12-09] MEDS: LACTULOSE SYRUP 20 GM/30 ML CUP PO SCH ×3 (09:52→18:04)
[2017-12-09] MEDS: cefTRIAXone INJ 1,000 MG in SODIUM CHLORIDE 0.9% INJ 100 ML IV SCH (09:53)
[2017-12-09] MEDS: SODIUM CHLORIDE 0.9% FLUSH 10 ML FLUSH IV FLUSH SCH ×2 (09:53→21:00)
[2017-12-09 12:00] VITALS: BP 135/62; PULSE 55; RESP 18; TEMP 96.7; O2SAT 97
[2017-12-09 16:00] VITALS: BP 120/56; PULSE 56; RESP 18; TEMP 97.3; O2SAT 96
[2017-12-09] MEDS: INSULIN ASPAR PROT 70/30 1,000 UNITS/10 ML VIAL SQ SCH (16:00)
[2017-12-09] MEDS: ACETAMINOPHEN 325 MG TAB PO PRN (16:04)
--- NOTE | 2017-12-09 18:59 | HHI.GIFU ---
GI Follow-up Note Consult Follow-up Subjective: Madison had 7 BMs yesterday from the lactulose but much better today. Eating OK. Objective: PHYSICAL EXAMINATION: Vitals signs stable No fever EXTREMITIES: No edema. SKIN: warm and dry CLINICAL REHABILITATION SPECIALIST: alert and oriented times three. Asterixis improved. Available Data (labs, X- Rays, Procedues) : Laboratory Tests Test 12/07/17 20:54 12/07/17 21:15 12/07/17 21:45 12/08/17 08:23 White Blood Count 13.0 TH/MM3 (4.0-11.0) Red Blood Count 3.43 MIL/MM3 (4.00-5.30) 3.24 MIL/MM3 (4.00-5.30) Mean Corpuscular Volume 103.3 FL (80.0-100.0) 103.8 FL (80.0-100.0) Mean Corpuscular Hemoglobin 34.6 PG (27.0-34.0) 35.2 PG (27.0-34.0) Monocytes (%) (Auto) 9.8 % (0.0-8.0) 9.5 % (0.0-8.0) Neutrophils # (Auto) 9.1 TH/MM3 (1.8-7.7) Monocytes # (Auto) 1.3 TH/MM3 (0-0.9) 1.0 TH/MM3 (0-0.9) Blood Urea Nitrogen 37 MG/DL (7-18) 34 MG/DL (7-18) Creatinine 1.70 MG/DL (0.50-1.00) 1.44 MG/DL (0.50-1.00) Random Glucose 147 MG/DL (74-106) 217 MG/DL (74-106) Total Protein 8.3 GM/DL (6.4-8.2) Alkaline Phosphatase 186 U/L (45-117) 164 U/L (45-117) Aspartate Amino Transf (AST/SGOT) 67 U/L (15-37) 64 U/L (15-37) Estimat Glomerular Filtration Rate 30 ML/MIN (>89) 36 ML/MIN (>89) Ammonia 118 MCMOL/L (11-32) Thyroid Stimulating Hormone 3rd Gen 5.210 uIU/ML (0.358-3.740) Urine Turbidity HAZY (CLEAR) Urine Leukocyte Esterase LARGE (NEG) Urine WBC 32 /hpf (0-5) Urine WBC Clumps FEW (NONE) Urine Bacteria MANY /hpf (NONE) Hemoglobin 11.4 GM/DL (11.6-15.3) Hematocrit 33.6 % (35.0-46.0) Neutrophils (%) (Auto) 71.3 % (16.0-70.0) Albumin 3.0 GM/DL (3.4-5.0) Test 12/09/17 06:55 Red Blood Count 3.13 MIL/MM3 (4.00-5.30) Hemoglobin 11.2 GM/DL (11.6-15.3) Hematocrit 32.1 % (35.0-46.0) Mean Corpuscular Volume 102.7 FL (80.0-100.0) Mean Corpuscular Hemoglobin 35.9 PG (27.0-34.0) Neutrophils (%) (Auto) 71.1 % (16.0-70.0) Monocytes (%) (Auto) 8.8 % (0.0-8.0) Blood Urea Nitrogen 29 MG/DL (7-18) Creatinine 1.20 MG/DL (0.50-1.00) Random Glucose 116 MG/DL (74-106) Albumin 3.1 GM/DL (3.4-5.0) Alkaline Phosphatase 168 U/L (45-117) Aspartate Amino Transf (AST/SGOT) 67 U/L (15-37) Estimat Glomerular Filtration Rate 44 ML/MIN (>89) Ammonia 63 MCMOL/L (11-32) ASSESSMENT/PLAN: 1. Cirrhosis 2. HE-ammonia level decreased. Interesting that her asterixis seems better. Rec titrate lactulose to avoid the diarrhea. Discussed Xifaxan option but they are concerned about med costs so suggest continue with lactulose alone for now which will also help with her chronic constipation. If doing well tomorrow can discharge from GI standpoint. It was a pleasure seeing Madison Lucia Thank you for this consult. Entered by: Vish Leonardo MD Dec 09, 2017 18:59
[2017-12-09 20:00] VITALS: BP 141/59; PULSE 57; RESP 18; TEMP 98; O2SAT 98
[2017-12-10] VITALS: BP 134/67; PULSE 67; RESP 16; TEMP 97.9; O2SAT 97
[2017-12-10 04:00] VITALS: BP 135/66; PULSE 63; RESP 17; TEMP 98.4; O2SAT 95
[2017-12-10] MEDS: LEVOTHYROXINE SODIUM 88 MCG TAB PO SCH (06:33)
[2017-12-10] MEDS: ACETAMINOPHEN 325 MG TAB PO PRN (06:36)
[2017-12-10] MEDS: INSULIN ASPAR PROT 70/30 1,000 UNITS/10 ML VIAL SQ SCH (07:00)
[2017-12-10 07:55] LABS: AUTOMATED NEUTROPHIL # 6.7 TH/MM3 (1.8-7.7); BASOPHIL # 0.1 TH/MM3 (0-0.2); BASOPHIL % 0.6 % (0.0-2.0); EOSINOPHIL # 0.2 TH/MM3 (0-0.4); EOSINOPHIL % 2.3 % (0.0-4.0); HEMATOCRIT 32.6 % (35.0-46.0); LYMPH % 18.5 % (9.0-44.0); LYMPHOCYTE # 1.8 TH/MM3 (1.0-4.8); MEAN CELL VOLUME 102.7 FL (80.0-100.0); MEAN CORPUSCULAR HEMOGLOBIN 34.6 PG (27.0-34.0); MEAN CORPUSCULAR HGB CONC 33.7 % (32.0-36.0); MEAN PLATELET VOLUME 8.3 FL (7.0-11.0); MONO % 9.4 % (0.0-8.0); MONOCYTE # 0.9 TH/MM3 (0-0.9); NEUT % 69.2 % (16.0-70.0); PLATELET COUNT 259 TH/MM3 (150-450); RED BLOOD COUNT 3.17 MIL/MM3 (4.00-5.30); RED CELL DISTRIBUTION WIDTH 13.1 % (11.6-17.2); WHITE BLOOD COUNT 9.7 TH/MM3 (4.0-11.0)
[2017-12-10 08:00] VITALS: BP 138/56; PULSE 59; RESP 18; TEMP 97.8; O2SAT 97
[2017-12-10 08:12] LABS: ALBUMIN 3.1 GM/DL (3.4-5.0); AST (GOT) 63 U/L (15-37); BICARBONATE 32.5 MEQ/L (21.0-32.0); BLOOD UREA NITROGEN 26 MG/DL (7-18); CALCIUM 9.4 MG/DL (8.5-10.1); CHLORIDE 101 MEQ/L (98-107); CREATININE 1.21 MG/DL (0.50-1.00); GLOMERULAR FILTRATION RATE 44 ML/MIN (>89); GLUCOSE,RANDOM 145 MG/DL (74-106); SODIUM (NA) 140 MEQ/L (136-145)
[2017-12-10 08:15] LABS: ALKALINE PHOSPHATASE 160 U/L (45-117); ALT (GPT) 46 U/L (10-53); TOTAL BILIRUBIN ADULT 0.6 MG/DL (0.2-1.0)
[2017-12-10] MEDS: SODIUM CHLORIDE 0.9% FLUSH 10 ML FLUSH IV FLUSH SCH (09:00)
[2017-12-10] MEDS: METOLAZONE 2.5 MG TAB PO SCH (09:00)
[2017-12-10] MEDS: PROPRANOLOL HCL LA 60 MG CAP PO SCH (09:00)
[2017-12-10] MEDS: LACTULOSE SYRUP 20 GM/30 ML CUP PO SCH ×3 (09:00→14:44)
[2017-12-10] MEDS ORDERED: Lactulose Liq PO (09:27)
[2017-12-10] MEDS ORDERED: MACR100C2 PO (09:27)
[2017-12-10] MEDS: FUROSEMIDE 40 MG TAB PO SCH (09:29)
[2017-12-10] MEDS: DICYCLOMINE HCL 10 MG CAP PO SCH (09:29)
[2017-12-10] MEDS: POTASSIUM CHLORIDE 8 MEQ CONTROLLED RELEASE TAB PO SCH (09:29)
[2017-12-10] MEDS: PANTOPRAZOLE SOD 40 MG DELAYED RELEASE TAB PO SCH (09:29)
[2017-12-10] MEDS: ENALAPRIL MALEATE 10 MG TAB PO SCH (09:29)
[2017-12-10] MEDS: ALLOPURINOL 300 MG TAB PO SCH (09:29)
[2017-12-10] MEDS: cloNIDine HCL 0.1 MG TAB PO SCH (09:30)
[2017-12-10] MEDS ORDERED: NITROFURANTOIN MONOHYD MACROCR 100 MG CAP PO SCH (09:30)
[2017-12-10] MEDS: ASPIRIN EC 81 MG TABEC PO SCH (09:30)
[2017-12-10] MEDS: SPIRONOLACTONE 50 MG TAB PO SCH (09:30)
--- NOTE | 2017-12-10 09:31 | HHI.DS ---
Discharge Summary Admission Date Dec 07, 2017 at 22:52 Discharge Date: Dec 10, 2017 Admitting Diagnosis Elevated AMMONIA (1) Urinary tract infection ICD Code: N39.0 - Urinary tract infection Status: Acute (2) Altered mental status ICD Code: R41.82 - Altered mental status, unspecified Status: Acute (3) Hyperammonemia ICD Code: E72.20 - Disorder of urea cycle metabolism, unspecified Procedures none Brief History - From Admission History from patient, ER physician communication, and review of medical records. Patient's was also present at the bedside. Patient is somewhat drowsy at the time of my exam. She however would answer questions appropriately when she wakes up. She reports that she has been out of it which is why she came to hospital. She admits she couldn't remember much. When asked, long this has been going on, she reports this pain for a while. Admits to being constipated. Denies any fever. Also complains about abdominal pain diffusely. Has had back pains and has been having outpatient workup with her doctors for this back pain. She has had multiple scans and was told she has osteoporosis, spinal fluid leakage. She also vomited 2 times in the past one week or so. Denies any blood in her stool or urine or vomitus. Patient is noted to have asterixis on examination. When asked about this, both patient and said that this has been going on for a while and she was even diagnosed with Parkinson's because of this. She has also been falling quite a bit and has been having unsteady gait. Her PCP had sent for ammonia levels last week and she finally had it done yesterday or Tuesday and was called back from PCP office to go to GI doctors office because of the lab results revealing ammonia level of 198. However she wasn't able to get an appointment with his GI doctors and therefore was sent to ER. Patient has history of liver cirrhosis secondary to hepatitis C. She was treated with Pegasys for hepatitis C. She has not been on any lactulose at home. Patient denies any prior history of GI bleed. She believes she has had paracenteses twice. CBC/BMP: 12/10/17 0727 12/10/17 0727 Significant Findings Laboratory Tests Test 12/07/17 20:54 12/07/17 21:15 12/07/17 21:45 12/08/17 08:23 White Blood Count 13.0 TH/MM3 (4.0-11.0) Red Blood Count 3.43 MIL/MM3 (4.00-5.30) 3.24 MIL/MM3 (4.00-5.30) Mean Corpuscular Volume 103.3 FL (80.0-100.0) 103.8 FL (80.0-100.0) Mean Corpuscular Hemoglobin 34.6 PG (27.0-34.0) 35.2 PG (27.0-34.0) Monocytes (%) (Auto) 9.8 % (0.0-8.0) 9.5 % (0.0-8.0) Neutrophils # (Auto) 9.1 TH/MM3 (1.8-7.7) Monocytes # (Auto) 1.3 TH/MM3 (0-0.9) 1.0 TH/MM3 (0-0.9) Blood Urea Nitrogen 37 MG/DL (7-18) 34 MG/DL (7-18) Creatinine 1.70 MG/DL (0.50-1.00) 1.44 MG/DL (0.50-1.00) Random Glucose 147 MG/DL (74-106) 217 MG/DL (74-106) Total Protein 8.3 GM/DL (6.4-8.2) Alkaline Phosphatase 186 U/L (45-117) 164 U/L (45-117) Aspartate Amino Transf (AST/SGOT) 67 U/L (15-37) 64 U/L (15-37) Estimat Glomerular Filtration Rate 30 ML/MIN (>89) 36 ML/MIN (>89) Ammonia 118 MCMOL/L (11-32) Thyroid Stimulating Hormone 3rd Gen 5.210 uIU/ML (0.358-3.740) Urine Turbidity HAZY (CLEAR) Urine Leukocyte Esterase LARGE (NEG) Urine WBC 32 /hpf (0-5) Urine WBC Clumps FEW (NONE) Urine Bacteria MANY /hpf (NONE) Hemoglobin 11.4 GM/DL (11.6-15.3) Hematocrit 33.6 % (35.0-46.0) Neutrophils (%) (Auto) 71.3 % (16.0-70.0) Albumin 3.0 GM/DL (3.4-5.0) Test 12/09/17 06:55 12/10/17 07:27 Red Blood Count 3.13 MIL/MM3 (4.00-5.30) 3.17 MIL/MM3 (4.00-5.30) Hemoglobin 11.2 GM/DL (11.6-15.3) 11.0 GM/DL (11.6-15.3) Hematocrit 32.1 % (35.0-46.0) 32.6 % (35.0-46.0) Mean Corpuscular Volume 102.7 FL (80.0-100.0) 102.7 FL (80.0-100.0) Mean Corpuscular Hemoglobin 35.9 PG (27.0-34.0) 34.6 PG (27.0-34.0) Neutrophils (%) (Auto) 71.1 % (16.0-70.0) Monocytes (%) (Auto) 8.8 % (0.0-8.0) 9.4 % (0.0-8.0) Blood Urea Nitrogen 29 MG/DL (7-18) 26 MG/DL (7-18) Creatinine 1.20 MG/DL (0.50-1.00) 1.21 MG/DL (0.50-1.00) Random Glucose 116 MG/DL (74-106) 145 MG/DL (74-106) Albumin 3.1 GM/DL (3.4-5.0) 3.1 GM/DL (3.4-5.0) Alkaline Phosphatase 168 U/L (45-117) 160 U/L (45-117) Aspartate Amino Transf (AST/SGOT) 67 U/L (15-37) 63 U/L (15-37) Estimat Glomerular Filtration Rate 44 ML/MIN (>89) 44 ML/MIN (>89) Ammonia 63 MCMOL/L (11-32) 55 MCMOL/L (11-32) Carbon Dioxide Level 32.5 MEQ/L (21.0-32.0) Imaging Last Impressions Chest X-Ray 12/07/172036 Signed Impressions: Service Date/Time: Thursday, December 07, 2017 21:18 - CONCLUSION: Mild cardiomegaly without pulmonary vascular engorgement. Brendon Monroe Jr., MD PE at Discharge GENERAL: sitting on side of bed, talking w nurses aid EYES: EOMI ENT: Nose without drainage. Airway patent. NECK: Trachea midline. CARDIOVASCULAR: Regular rate and rhythm without murmurs RESPIRATORY: Clear to auscultation. Breath sounds equal bilaterally. No wheezes GASTROINTESTINAL: Abdomen soft, non-tender, nondistended. No guarding. MUSCULOSKELETAL: Extremities without edema. NEUROLOGICAL: Motor and sensory grossly within normal limits. Normal speech. Pt update on day of discharge Pt feeling better. No longer has diarrhea but has loose stools. No nausea or vomiting. Comfortable going home today Hospital Course Pt was admissted for Hepatic encephalopathy/hyperammonemia: ammonia levels found to be in the 118's. Pt received lactulose QID and later dose was titrated to TID. Ammonia levels dropped to 55 on day of discharged. Pt no longer has diarrhea and stools are now soft. Pt was also found to have a UTI ( E. Coli) she was treated w rocephin and will be discharged on macrobid Pt was also found to have mild acute renal insufficiency on CKD and she received IV hydration. Cr stabilized at 1.20. Pt will f/u w PCP as an outpatient. Pt Condition on Discharge: Stable Discharge Disposition: Disch w/ Home Health Serv Discharge Time: > 30 minutes Discharge Instructions DIET: Follow Instructions for: Heart Healthy Diet, Diabetic Diet Activities you can perform: Regular-No Restrictions Follow up Referrals: Gastroenterology - 1 Week PCP Follow-up - 1 Week New Medications: Nitrofurantoin Monohydrate Macrocrystals (Macrobid) 100 Mg Cap 100 MG PO BID for Infection for 5 Days, #9 CAP 0 Refills Pt to take first dose tonight [Lactulose Liq] () 30 ML SYRP 30 ML PO TID for 30 Days Continued Medications: Allopurinol (Allopurinol) 300 Mg Tab 300 MG PO DAILY for Gout, #30 TAB 0 Refills Ascorbic Acid (Vitamin C) 250 Mg Tab 1000 MG PO DAILY for Nutritional Supplement, TAB [address] (Aspirin DR) 81 Mg Tabdr 81 MG PO DAILY, TAB 0 Refills Cholecalciferol (Vitamin D-1000) 1,000 Unit Tab 1000 UNITS PO BID for Nutritional Supplement, #1 BOTTLE 0 Refills Clonidine (Clonidine) 0.1 Mg Tab 0.1 MG PO BID for Blood Pressure Management, #60 TAB 0 Refills Diclofenac Topical (Diclofenac Topical) 1% Gel 1 APPLIC TOPICAL QID for Pain Management, #100 GM 0 Refills Dicyclomine (Dicyclomine) 10 Mg Cap 10 MG PO DAILY for Bowel Management, CAP 0 Refills Enalapril (Enalapril) 20 Mg Tab 20 MG PO BID, #30 TAB [address] (Esomeprazole DR) 40 Mg Capdr 40 MG PO DAILY, #30 CAP 0 Refills Furosemide (Furosemide) 40 Mg Tab 40 MG PO DAILY, #30 TAB 0 Refills Gabapentin (Gabapentin) 600 Mg Tab 600 MG PO TID, #90 TAB 0 Refills Hydrocodone/Acetaminophen (Hydrocodon-Acetamin 7.5-325/15) 7.5 Mg-325 Mg/15 Ml ( 15 Ml) Solution 1 TAB PO DAILY Insulin Lispro Protamine-Lispro 75-25 Inj (Humalog Mix 75-25 Inj) 1,000 Unit/10 Ml Susp 90 UNITS SQ BID for Blood Sugar Management, VIAL 0 Refills t-Fhmzfihicisc-Nasdmrn B6-Vitmin B12 (Foltx) 1.13-25-2 Mg Tab 1 TAB PO DAILY for Nutritional Supplement, TAB 0 Refills Levothyroxine (Levothyroxine) 88 Mcg Tab 88 MCG PO DAILY for Thyroid, #30 TAB 0 Refills Metolazone (Metolazone) 2.5 Mg Tab 2.5 MG PO DAILY, #30 TAB 0 Refills Potassium Chloride ER (Potassium Chloride ER) 8 Meq Cap 8 MEQ PO DAILY for Electrolyte Replacement, #30 CAP 0 Refills Propranolol (Propranolol) 60 Mg Tab 60 MG PO DAILY, #60 TAB 0 Refills Ropinirole (Ropinirole) 0.25 Mg Tab 0.25 MG PO HS, #30 TAB 0 Refills Spironolactone (Spironolactone) 50 Mg Tab 50 MG PO DAILY, #30 TAB 0 Refills Jess Strauss MD Dec 10, 2017 09:31
--- NOTE | 2017-12-10 09:32 | HHI.FF ---
Face to Face Verification Diagnosis: (1) Chronic pain (2) Hyperammonemia (3) Metabolic encephalopathy (4) Arthritis Physical Therapy Order: Evaluate and Treat Occupational Therapy Order: Evaluate and Treat Home Health Nursing Order: Nursing assessment with vital signs I have seen patient Madison Lucia on 12/10/17. My clinical findings support the need for the requested home health care services because: Pt was evaluated by PT while in the hospital and they recommended home health PT and OT Ltd mobility - disease progression High risk of falls I certify that my clinical findings support that this patient is homebound because: Pt was evaluated by PT while in the hospital and they recommended home health PT and OT Unsteady gait/balance Jess Strauss MD Dec 10, 2017 09:32
[2017-12-10] MEDS: INSULIN ASPART SUPPLEMENTAL SCALE SQ SCH ×2 (09:34→12:00)
[2017-12-10 12:00] VITALS: BP 113/58; PULSE 64; RESP 18; TEMP 96.7; O2SAT 99
== END 2017-12-10 15:19 | disposition home health service (06) | DRG 442 ==
LOC: NEPC 20:23 → NEDA 22:52 → N06B 23:58
PROVIDERS: ADMIT Hospitalist; ATTEND Hospitalist
DX: K72.90 Hepatic failure, unspecified without coma (principal); I13.0 Hypertensive heart and chronic kidney disease with heart failure and stage 1 through stage 4 chronic kidney disease, or unspecified chronic kidney disease; E11.22 Type 2 diabetes mellitus with diabetic chronic kidney disease; I50.9 Heart failure, unspecified; N30.00 Acute cystitis without hematuria; B19.20 Unspecified viral hepatitis C without hepatic coma; B96.20 Unspecified Escherichia coli [E. coli] as the cause of diseases classified elsewhere; N18.9 Chronic kidney disease, unspecified; E03.9 Hypothyroidism, unspecified; E78.00 Pure hypercholesterolemia, unspecified; M19.90 Unspecified osteoarthritis, unspecified site; F41.9 Anxiety disorder, unspecified; K74.60 Unspecified cirrhosis of liver; K21.9 Gastro-esophageal reflux disease without esophagitis; M81.0 Age-related osteoporosis without current pathological fracture; M79.7 Fibromyalgia; G62.9 Polyneuropathy, unspecified; K59.09 Other constipation; K22.70 Barrett's esophagus without dysplasia; R27.8 Other lack of coordination; I25.10 Atherosclerotic heart disease of native coronary artery without angina pectoris; R29.6 Repeated falls; G89.29 Other chronic pain; M54.9 Dorsalgia, unspecified; M25.569 Pain in unspecified knee; Z79.4 Long term (current) use of insulin; Z85.05 Personal history of malignant neoplasm of liver; Z92.21 Personal history of antineoplastic chemotherapy; Z86.73 Personal history of transient ischemic attack (TIA), and cerebral infarction without residual deficits; Z80.9 Family history of malignant neoplasm, unspecified; Z90.710 Acquired absence of both cervix and uterus
CPT/HCPCS: 71045; 80053; 81001; 82140; 82550; 82948; 83605; 83690; 83735; 83880; 84100; 84443; 84484; 85025; 87077; 87086; 87186; 93005; 96374; J0696; J1815

== ENCOUNTER 2017-12-12 21:50 | Inpatient (IN) | payer MEDICARE ==
[~2017-12-12] VITALS: Ht 157.5 cm; Wt 100.0 kg
[~2017-12-12 21:50] MED LIST changes: +Lactulose Liq PO; +MACR100C2 PO; -SULF500T3 PO; -SYSTSOL EACH EYE
[2017-12-12 22:15] VITALS: BP 133/59; PULSE 65; RESP 20; TEMP 99.1; O2SAT 96
--- NOTE | 2017-12-12 22:20 | PD ---
HPI Chief Complaint: General Weakness Time Seen by Provider: 22:05 Travel History International Travel<30 days: No Contact w/Intl Traveler<30days: No Traveled to known affect area: No History of Present Illness HPI The patient is a 72 year old female who presents to the [facility] emergency department with a history of generalized weakness, nausea with vomiting that has been recurrent since her discharge on Tuesday from the hospital. The patient was admitted to the hospital related to an elevated ammonia level from December 07 through December 10. The patient reports that she was discharged home on lactulose 3 times per day. She reports that she was moving her bowels regularly while in the hospital, however she has not moved her bowels since Tuesday. She reports that she's had vomiting 3 times today. She reports having an unsteady gait with generalized weakness and falling earlier today. She denies hurting herself. She does however have an abrasion noted to the left anterior knee. The patient reports that she has been diagnosed with cirrhosis. She reports that this is related to hepatitis C from a blood transfusion. She reports that she did undergo treatment for the hepatitis C. On review of systems otherwise, the patient denies having any known recent fevers. She reports that she was diagnosed with urinary tract infection in the hospital and is currently on antibiotic. She reports that the dysuria has improved. She denies having any cough, congestion, neck pain, chest pain, shortness of breath, abdominal pain, diarrhea, or focal neurologic symptoms. [facility] Past Medical History Narrative Medical The patient's past medical history is significant for cirrhosis, hepatic encephalopathy, history of heart murmur, history of rheumatoid arthritis followed by Dr. Anna, history of congestive heart failure with an admission to the hospital in [place] in October 2017, history of hypertension, diabetes mellitus, coronary artery disease, history of Parkinson's disease, history of cerebrovascular accident, TIAs 2, hypothyroid disorder. Hx Anticoagulant Therapy: No Arthritis: Yes Autoimmune Disease: No Anxiety: Yes Depression: No Heart Rhythm Problems: Yes (murmur irregular beat) Cancer: Yes (LIVER) Cardiovascular Problems: Yes High Cholesterol: Yes Chemotherapy: Yes Chest Pain: No Congestive Heart Failure: No Cirrhosis: Yes Cerebrovascular Accident: Yes (2009 AND 2010) Diabetes: Yes Patient Takes Glucophage: No Diminished Hearing: No Endocrine: Yes (HYPOTHYROID) Gastrointestinal Disorders: Yes (CIRRHOSIS, HEPATITIS C) GERD: Yes Genitourinary: Yes Headaches: Yes Hepatitis: Yes (CIRRHOSIS, HEPATITIS C) Hiatal Hernia: Yes Hypertension: Yes Immune Disorder: Yes (HX: CHEMO) Kidney Stones: No Musculoskeletal: Yes (OSTEOARTHRITIS, OSTEOPOROSIS, FIBROMYALGIA) Neurologic: Yes (NEUROPATHY, HX CVA, TIA X2) Psychiatric: Yes Reproductive: No Respiratory: No Migraines: No Radiation Therapy: No Renal Failure: No Seizures: No Thyroid Disease: Yes Ulcer: No Tetanus Vaccination: > 5 Years ?: Not Menopausal: Yes : 5 Para: 3 Miscarriage: 2 Past Surgical History Narrative Surgical The patient's past surgical history is significant for cholecystectomy, appendectomy, hysterectomy, endoscopy and colonoscopy. Abdominal Surgery: Yes (CHOLECYSTECOMY, APPENDECTOMY) AICD: No Appendectomy: Yes Arteriovenous Shunt: No Cardiac Surgery: No Cholecystectomy: Yes Ear Surgery: No Endocrine Surgery: Yes (DIABETES) Eye Surgery: No Genitourinary Surgery: No Gynecologic Surgery: Yes (ARACELI) Hysterectomy: Yes (FULL) Insulin Pump: No Joint Replacement: No Neurologic Surgery: No Oral Surgery: No Pacemaker: No Other Surgery: Yes (TUMORS UNDER BILATERAL ARMS) Social History Alcohol Use: No Tobacco Use: No Substance Use: No Allergies-Medications (Allergen,Severity, Reaction): Coded Allergies: No Known Allergies (Unverified , 12/12/17) Reported Meds & Prescriptions Reported Meds & Active Scripts Active Macrobid (Nitrofurantoin Monoh/Nitrofur Macro) 100 Mg Cap 100 Mg PO BID 5 Days Pt to take first dose tonight [Lactulose Liq] 30 ML Syrp 30 Ml PO TID 30 Days Reported Dicyclomine (Dicyclomine HCl) 10 Mg Cap 10 Mg PO DAILY Potassium Chloride ER (Potassium Chloride) 8 Meq Cap 8 Meq PO DAILY Metolazone 2.5 Mg Tab 2.5 Mg PO DAILY Ropinirole 0.25 Mg Tab 0.25 Mg PO HS Vitamin C (Ascorbic Acid) 250 Mg Tab 1,000 Mg PO DAILY Vitamin D-1000 (Cholecalciferol) 1,000 Unit Tab 1,000 Units PO BID Clonidine (Clonidine HCl) 0.1 Mg Tab 0.1 Mg PO BID Spironolactone 50 Mg Tab 50 Mg PO DAILY Propranolol (Propranolol HCl) 60 Mg Tab 60 Mg PO DAILY Levothyroxine (Levothyroxine Sodium) 88 Mcg Tab 88 Mcg PO DAILY Foltx (e-Uwcoqfbdryjz-Yqmwkcn B6-Vitmin B12) 1.13-25-2 Mg Tab 1 Tab PO DAILY Humalog Mix 75-25 Inj (Insulin Lispro Protam/Lispro Human) 1,000 Unit/10 Ml Susp 90 Units SQ BID Hydrocodon-Acetamin 7.5-325/15 (Hydrocodone/Acetaminophen) 7.5 Mg-325 Mg/15 Ml ( 15 Ml) Solution 1 Tab PO DAILY Gabapentin 600 Mg Tab 600 Mg PO TID Furosemide 40 Mg Tab 40 Mg PO DAILY Esomeprazole DR 40 Mg Capdr 40 Mg PO DAILY Enalapril (Enalapril Maleate) 20 Mg Tab 20 Mg PO BID Diclofenac Topical 1% Gel 1 Applic TOPICAL QID Aspirin DR (Aspirin) 81 Mg Tabdr 81 Mg PO DAILY Allopurinol 300 Mg Tab 300 Mg PO DAILY Review of Systems Except as stated in HPI: all other systems reviewed are Neg General / Constitutional: No: Fever Eyes: No: Visual changes HENT: No: Headaches Cardiovascular: No: Chest Pain or Discomfort Respiratory: No: Shortness of Breath Gastrointestinal: Positive: Nausea, Vomiting, Constipation, Changes in Bowel Habits, No: Diarrhea, Abdominal Pain, Hematemesis, Hematochezia, Indigestion, Loss of Appetite Genitourinary: No: Dysuria Musculoskeletal: No: Pain Skin: No Rash Neurologic: Positive: Weakness (generalized weakness), No: Focal Abnormalities , Change in Mentation, Slurred Speech, Sensory Disturbance Psychiatric: No: Depression Endocrine: No: Polydipsia Hematologic/Lymphatic: No: Easy Bruising Physical Exam Narrative General: The patient is a well-developed well-nourished female in no acute distress. Head and Neck exam: Head is normocephalic atraumatic. Eyes: EOMI, pupils are equal round and reactive to light. Nose: Midline septum with pink mucous membranes Mouth: Dentition unremarkable. Moist mucus membranes. Posterior oropharynx is not erythematous. No tonsillar hypertrophy. Uvula midline. Airway patent. Neck: No palpable lymphadenopathy. No nuchal rigidity. No thyromegaly. Cardiovascular: Irregularly irregular with occasional supraventricular premature complexes noted on land management forester with a 2/6 systolic murmur, no gallops or rubs. No pulse deficit to the extremities on simultaneous auscultation and palpation of her radial artery. Lungs: Clear to auscultation bilaterally. No wheezes, rhonchi, or rales. Abdomen: Soft, without tenderness to palpation in all 4 quadrants of the abdomen. No guarding, rebound, or rigidity. Normal bowel sounds are audible. No tenderness on palpation of McBurney's point. Negative Nolan's sign. Extremities: No clubbing, cyanosis, or edema. 2+ pulses in all 4 extremities. No calf tenderness on palpation. Back: No costovertebral angle tenderness to palpation. Neurologic Exam: Grossly nonfocal. The patient has generalized weakness noted with moving around. The patient has a mild resting tremor, however the patient reports that she does have a history of Parkinson's. No asterixis noted at this time. Skin Exam: No rash noted. Intact skin that is warm and dry. Data Data Last Documented VS Vital Signs Date Time Temp Pulse Resp B/P (MAP) Pulse Ox O2 Delivery O2 Flow Rate FiO2 12/12/17 22:15 99.1 65 20 133/59 (83) 96 12/12/17 22:05 Nasal Cannula 2.00 Orders Orders Electrocardiogram (12/12/17 22:07) Complete Blood Count With Diff (12/12/17 22:07) Comprehensive Metabolic Panel (12/12/17 22:07) Creatine Kinase (Cpk) (12/12/17 22:07) Ckmb (Isoenzyme) Profile (12/12/17 22:07) Troponin I (12/12/17 22:07) B-Type Natriuretic Peptide (12/12/17 22:07) Prothrombin Time / Inr (Pt) (12/12/17 22:07) Act Partial Throm Time (Ptt) (12/12/17 22:07) Lipase (12/12/17 22:07) Urinalysis - C+S If Indicated (12/12/17 22:07) Magnesium (Mg) (12/12/17 22:07) Ammonia (12/12/17 22:07) Iv Access Insert/Monitor (12/12/17 22:07) Ecg Monitoring (12/12/17 22:07) Oximetry (12/12/17 22:07) Sodium Chlor 0.9% 250 Ml Inj (Ns 250 Ml (12/12/17 22:30) Ondansetron Inj (Zofran Inj) (12/12/17 22:30) CKMB (12/12/17 22:10) CKMB% (12/12/17 22:10) Admit Order (Ed Use Only) (12/12/17 23:48) Sodium Chlor 0.9% 250 Ml Inj (Ns 250 Ml (12/13/17 00:00) Ceftriaxone Inj (Rocephin Inj) (12/13/17 00:00) Labs Laboratory Tests Test 12/12/17 22:10 12/12/17 22:25 White Blood Count 15.1 TH/MM3 Red Blood Count 3.18 MIL/MM3 Hemoglobin 10.9 GM/DL Hematocrit 32.8 % Mean Corpuscular Volume 103.2 FL Mean Corpuscular Hemoglobin 34.2 PG Mean Corpuscular Hemoglobin Concent 33.2 % Red Cell Distribution Width 13.5 % Platelet Count 318 TH/MM3 Mean Platelet Volume 8.5 FL Neutrophils (%) (Auto) 77.4 % Lymphocytes (%) (Auto) 10.7 % Monocytes (%) (Auto) 8.9 % Eosinophils (%) (Auto) 2.3 % Basophils (%) (Auto) 0.7 % Neutrophils # (Auto) 11.7 TH/MM3 Lymphocytes # (Auto) 1.6 TH/MM3 Monocytes # (Auto) 1.3 TH/MM3 Eosinophils # (Auto) 0.3 TH/MM3 Basophils # (Auto) 0.1 TH/MM3 CBC Comment DIFF FINAL Differential Comment Prothrombin Time 11.0 SEC Prothromb Time International Ratio 1.1 RATIO Activated Partial Thromboplast Time 27.5 SEC Blood Urea Nitrogen 41 MG/DL Creatinine 2.38 MG/DL Random Glucose 83 MG/DL Total Protein 7.3 GM/DL Albumin 3.1 GM/DL Calcium Level 8.5 MG/DL Magnesium Level 1.8 MG/DL Alkaline Phosphatase 181 U/L Aspartate Amino Transf (AST/SGOT) 76 U/L Alanine Aminotransferase (ALT/SGPT) 53 U/L Total Bilirubin 0.7 MG/DL Sodium Level 137 MEQ/L Potassium Level 4.3 MEQ/L Chloride Level 101 MEQ/L Carbon Dioxide Level 28.7 MEQ/L Anion Gap 7 MEQ/L Estimat Glomerular Filtration Rate 20 ML/MIN Total Creatine Kinase 123 U/L Creatine Kinase MB 6.6 NG/ML Troponin I 0.05 NG/ML B-Type Natriuretic Peptide 77 PG/ML Lipase 332 U/L Ammonia 92 MCMOL/L [facility] Medical Decision Making Medical Screen Exam Complete: Yes Emergency Medical Condition: Yes Medical Record Reviewed: Yes Differential Diagnosis Hepatic encephalopathy, versus electrolyte derangements, versus dehydration, versus failure of outpatient management of UTI Narrative Course During the course of the patients emergency department visit, the patients history, examination, and differential diagnosis were reviewed with the patient. The patient was placed on a land management forester with oximetry and frequent blood pressure monitoring. The patient had IV access obtained and blood work sent for analysis. The patient had an EKG done on arrival that shows a sinus rhythm with occasional supraventricular premature complexes, no acute ST segment elevation. QRS duration is 90 ms, QTC 421 ms. The patient was initially provided normal saline at 250 mL bolus 1, Zofran 4 mg IV. The patients laboratory studies were reviewed and remarkable for worsening renal insufficiency compared to prior BUN and creatinine. Recurrence of elevation of ammonia level. The patient was given a second NS250 ML bolus x1. The patient had a white blood cell count of 15.1, hemoglobin 10.9, platelets 318 , with 77.4 neutrophils, lipase 332, PT 11, PTT 27.5. The patient was on her last admission diagnosed with an Escherichia coli urinary tract infection that was sensitive to Macrobid, however as the patient's white blood cell count is elevated compared to previously and her renal function is worse in the Macrobid may be an effective. The patient was given Rocephin 1 g IV. The patients results were discussed with the patient, including the plan of care. I explained that further testing and/ or monitoring is indicated based on the patients history, examination, and/ or laboratory findings. Therefore, I recommended admission for additional evaluation. The patient expressed understanding and was agreeable with this plan. The patient was admitted to the hospital in stable condition and sent to a bed under the care of [facility]. Physician Communication Physician Communication The patient's case was d/w Dr. Martin. She did agree to admit the patient for further evaluation and treatment at this time. Diagnosis Primary Impression: Hepatic encephalopathy Additional Impressions: Acute on chronic renal insufficiency Leukocytosis Qualified Codes: D72.829 - Elevated white blood cell count, unspecified Admitting Information Admitting Physician Requests: Admit Amanda Linares MD Dec 12, 2017 22:20
[2017-12-12] MEDS ORDERED: ONDANSETRON HCL 4 MG/2 ML VIAL IV PUSH ONE (22:30)
[2017-12-12] MEDS ORDERED: SODIUM CHLOR 0.9% 250 ML INJ 250 ML IV ONE (22:30)
[2017-12-12 22:33] LABS: AUTOMATED NEUTROPHIL # 11.7 TH/MM3 (1.8-7.7); BASOPHIL # 0.1 TH/MM3 (0-0.2); BASOPHIL % 0.7 % (0.0-2.0); EOSINOPHIL # 0.3 TH/MM3 (0-0.4); EOSINOPHIL % 2.3 % (0.0-4.0); HEMATOCRIT 32.8 % (35.0-46.0); HEMOGLOBIN 10.9 GM/DL (11.6-15.3); LYMPH % 10.7 % (9.0-44.0); LYMPHOCYTE # 1.6 TH/MM3 (1.0-4.8); MEAN CELL VOLUME 103.2 FL (80.0-100.0); MEAN CORPUSCULAR HEMOGLOBIN 34.2 PG (27.0-34.0); MEAN CORPUSCULAR HGB CONC 33.2 % (32.0-36.0); MEAN PLATELET VOLUME 8.5 FL (7.0-11.0); MONO % 8.9 % (0.0-8.0); MONOCYTE # 1.3 TH/MM3 (0-0.9); NEUT % 77.4 % (16.0-70.0); PLATELET COUNT 318 TH/MM3 (150-450); RED BLOOD COUNT 3.18 MIL/MM3 (4.00-5.30); RED CELL DISTRIBUTION WIDTH 13.5 % (11.6-17.2); WHITE BLOOD COUNT 15.1 TH/MM3 (4.0-11.0)
[2017-12-12 23:00] LABS: INTERNATIONAL NORMALIZED RATIO 1.1 RATIO
[2017-12-12 23:01] LABS: ALBUMIN 3.1 GM/DL (3.4-5.0); ALKALINE PHOSPHATASE 181 U/L (45-117); ALT (GPT) 53 U/L (10-53); AST (GOT) 76 U/L (15-37); BICARBONATE 28.7 MEQ/L (21.0-32.0); BLOOD UREA NITROGEN 41 MG/DL (7-18); CALCIUM 8.5 MG/DL (8.5-10.1); CHLORIDE 101 MEQ/L (98-107); CREATININE 2.38 MG/DL (0.50-1.00); GLOMERULAR FILTRATION RATE 20 ML/MIN (>89); GLUCOSE,RANDOM 83 MG/DL (74-106); LIPASE 332 U/L (73-393); MAGNESIUM 1.8 MG/DL (1.5-2.5); SODIUM (NA) 137 MEQ/L (136-145); TOTAL BILIRUBIN ADULT 0.7 MG/DL (0.2-1.0); TOTAL PROTEIN 7.3 GM/DL (6.4-8.2); TROPONIN I 0.05 NG/ML (0.02-0.05)
[2017-12-13] VITALS (9 sets, daily range): BP systolic 98–172; BP diastolic 52–86; PULSE 51–75; RESP 17–20; TEMP 97–98.2; O2SAT 95–100
[2017-12-13] MEDS ORDERED: cefTRIAXone INJ 1,000 MG in SODIUM CHLORIDE 0.9% INJ 100 ML IV ONE ×2
[2017-12-13] MEDS ORDERED: SODIUM CHLOR 0.9% 250 ML INJ 250 ML IV ONE
[2017-12-13] MEDS: RIFAXIMIN 550 MG TAB PO SCH ×3 (00:45→21:13)
[2017-12-13] MEDS ORDERED: SODIUM CHLORIDE 0.9% FLUSH 10 ML FLUSH IV FLUSH PRN (00:45)
[2017-12-13] MEDS ORDERED: NALOXONE HCL 0.4 MG/ML AMP IV PUSH PRN (00:45)
--- NOTE | 2017-12-13 02:12 | HHI.HP ---
[facility] Primary Care Physician Joe Fermin MD Admission Diagnosis Dehydration, hepatic encephalopathy, leukocytosis Diagnoses: Travel History International Travel<30 Days: No Contact w/Intl Traveler <30 Da: No Traveled to Known Affected Are: No History of Present Illness 72-year-old female with a past medical history significant for hypertension, diabetes, CAD, CHF (no recent echo for comparison), Hepatitis C status post treatment with subsequent cirrhosis, history of TIA 2 and hypothyroidism was brought to the emergency department for evaluation of generalized weakness, nausea and vomiting that has been worsening since Tuesday. The patient has also had unsteady gait and suffered a fall yesterday. She was discharged from the hospital on Tuesday where she was admitted and treated for hepatic encephalopathy/hyperammonemia. She was discharged on lactulose 3 times a day. Of note, the patient has not had a bowel movement since she was discharged from the hospital. She reports compliance with her medications. The patient was also started on Macrobid for UTI. Past Family Social History Past Medical History Hypertension Diabetes CAD CHF Hepatitis C Liver cirrhosis TIAs 2 Hypothyroidism Past Surgical History Cholecystectomy Appendectomy Hysterectomy EGDs and colonoscopies Reported Medications Reported Meds & Active Scripts Active Macrobid (Nitrofurantoin Monoh/Nitrofur Macro) 100 Mg Cap 100 Mg PO BID 5 Days Pt to take first dose tonight [Lactulose Liq] 30 ML Syrp 30 Ml PO TID 30 Days Reported Dicyclomine (Dicyclomine HCl) 10 Mg Cap 10 Mg PO DAILY Potassium Chloride ER (Potassium Chloride) 8 Meq Cap 8 Meq PO DAILY Metolazone 2.5 Mg Tab 2.5 Mg PO DAILY Ropinirole 0.25 Mg Tab 0.25 Mg PO HS Vitamin C (Ascorbic Acid) 250 Mg Tab 1,000 Mg PO DAILY Vitamin D-1000 (Cholecalciferol) 1,000 Unit Tab 1,000 Units PO BID Clonidine (Clonidine HCl) 0.1 Mg Tab 0.1 Mg PO BID Spironolactone 50 Mg Tab 50 Mg PO DAILY Propranolol (Propranolol HCl) 60 Mg Tab 60 Mg PO DAILY Levothyroxine (Levothyroxine Sodium) 88 Mcg Tab 88 Mcg PO DAILY Foltx (x-Hlomozgkpwrf-Bergdrx B6-Vitmin B12) 1.13-25-2 Mg Tab 1 Tab PO DAILY Humalog Mix 75-25 Inj (Insulin Lispro Protam/Lispro Human) 1,000 Unit/10 Ml Susp 90 Units SQ BID Hydrocodon-Acetamin 7.5-325/15 (Hydrocodone/Acetaminophen) 7.5 Mg-325 Mg/15 Ml ( 15 Ml) Solution 1 Tab PO DAILY Gabapentin 600 Mg Tab 600 Mg PO TID Furosemide 40 Mg Tab 40 Mg PO DAILY Esomeprazole DR 40 Mg Capdr 40 Mg PO DAILY Enalapril (Enalapril Maleate) 20 Mg Tab 20 Mg PO BID Diclofenac Topical 1% Gel 1 Applic TOPICAL QID Aspirin DR (Aspirin) 81 Mg Tabdr 81 Mg PO DAILY Allopurinol 300 Mg Tab 300 Mg PO DAILY Allergies: Coded Allergies: No Known Allergies (Unverified , 12/12/17) Family History No family history of DM/CAD Social History Denies smoking, alcohol, drugs Physical Exam Vital Signs Vital Signs Date Time Temp Pulse Resp B/P (MAP) Pulse Ox O2 Delivery O2 Flow Rate FiO2 12/12/17 22:15 99.1 65 20 133/59 (83) 96 12/12/17 22:05 67 20 99 Nasal Cannula 2.00 Physical Exam GENERAL: This is a well-nourished, well-developed patient, in no apparent distress. SKIN: No rashes, ecchymoses or lesions. Cool and dry. HEAD: Atraumatic. Normocephalic. No temporal or scalp tenderness. EYES: Pupils equal round and reactive. Extraocular motions intact. No scleral icterus. No injection or drainage. ENT: Nose without bleeding, purulent drainage or septal hematoma. Throat without erythema, tonsillar hypertrophy or exudate. Uvula midline. Airway patent. NECK: Trachea midline. No JVD or lymphadenopathy. Supple, nontender, no meningeal signs. CARDIOVASCULAR: Regular rate and rhythm without murmurs, gallops, or rubs. RESPIRATORY: Clear to auscultation. Breath sounds equal bilaterally. No wheezes , rales, or rhonchi. GASTROINTESTINAL: Abdomen soft, non-tender, nondistended. No hepato-splenomegaly , or palpable masses. No guarding. MUSCULOSKELETAL: Extremities without clubbing, cyanosis, or edema. No joint tenderness, effusion, or edema noted. No calf tenderness. Negative Homans sign bilaterally. NEUROLOGICAL: Awake and alert. Cranial nerves II through XII intact. Motor and sensory grossly within normal limits. Five out of 5 muscle strength in all muscle groups. Normal speech. Laboratory Laboratory Tests Test 12/12/17 22:10 12/12/17 22:25 White Blood Count 15.1 Red Blood Count 3.18 Hemoglobin 10.9 Hematocrit 32.8 Mean Corpuscular Volume 103.2 Mean Corpuscular Hemoglobin 34.2 Mean Corpuscular Hemoglobin Concent 33.2 Red Cell Distribution Width 13.5 Platelet Count 318 Mean Platelet Volume 8.5 Neutrophils (%) (Auto) 77.4 Lymphocytes (%) (Auto) 10.7 Monocytes (%) (Auto) 8.9 Eosinophils (%) (Auto) 2.3 Basophils (%) (Auto) 0.7 Neutrophils # (Auto) 11.7 Lymphocytes # (Auto) 1.6 Monocytes # (Auto) 1.3 Eosinophils # (Auto) 0.3 Basophils # (Auto) 0.1 CBC Comment DIFF FINAL Differential Comment Prothrombin Time 11.0 Prothromb Time International Ratio 1.1 Activated Partial Thromboplast Time 27.5 Blood Urea Nitrogen 41 Creatinine 2.38 Random Glucose 83 Total Protein 7.3 Albumin 3.1 Calcium Level 8.5 Magnesium Level 1.8 Alkaline Phosphatase 181 Aspartate Amino Transf (AST/SGOT) 76 Alanine Aminotransferase (ALT/SGPT) 53 Total Bilirubin 0.7 Sodium Level 137 Potassium Level 4.3 Chloride Level 101 Carbon Dioxide Level 28.7 Anion Gap 7 Estimat Glomerular Filtration Rate 20 Total Creatine Kinase 123 Creatine Kinase MB 6.6 Troponin I 0.05 B-Type Natriuretic Peptide 77 Lipase 332 Ammonia 92 Result Diagram: 12/12/17220912/12/172209 Caprini VTE Risk Assessment Caprini VTE Risk Assessment: Mod/High Risk (score >= 2) Caprini Risk Assessment Model Point Value = 1 Point Value = 2 Point Value = 3 Point Value = 5 Age 41-60 Minor surgery BMI > 25 kg/m2 Swollen legs Varicose veins or History of unexplained or recurrent spontaneous Oral contraceptives or hormone replacement Sepsis (< 1 month) Serious lung disease, including pneumonia (< 1 month) Abnormal pulmonary function Acute myocardial infarction Congestive heart failure (< 1 month) History of inflammatory bowel disease Medical patient at bed rest Age 61-74 Arthroscopic surgery Major open surgery (> 45 min) Laparoscopic surgery (> 45 min) Malignancy Confined to bed (> 72 hours) Immobilizing plaster cast Central venous access Age >= 75 History of VTE Family history of VTE Factor V Leiden Prothrombin [id number] Lupus anticoagulant Anticardiolipin antibodies Elevated serum homocysteine Heparin-induced thrombocytopenia Other congenital or acquired thrombophilia Stroke (< 1 month) Elective arthroplasty Hip, pelvis, or leg fracture Acute spinal cord injury (< 1 month) Prophylaxis Regimen Total Risk Factor Score Risk Level Prophylaxis Regimen 0-1 Low Early ambulation 2 Moderate Order ONE of the following: *Sequential Compression Device (SCD) *Heparin 5000 units SQ BID 3-4 Higher Order ONE of the following medications: *Heparin 5000 units SQ TID *Enoxaparin/Lovenox 40 mg SQ daily (WT < 150 kg, CrCl > 30 mL/min) *Enoxaparin/Lovenox 30 mg SQ daily (WT < 150 kg, CrCl > 10-29 mL/min) *Enoxaparin/Lovenox 30 mg SQ BID (WT < 150 kg, CrCl > 30 mL/min) AND/OR *Sequential Compression Device (SCD) 5 or more Highest Order ONE of the following medications: *Heparin 5000 units SQ TID (Preferred with Epidurals) *Enoxaparin/Lovenox 40 mg SQ daily (WT < 150 kg, CrCl > 30 mL/min) *Enoxaparin/Lovenox 30 mg SQ daily (WT < 150 kg, CrCl > 10-29 mL/min) *Enoxaparin/Lovenox 30 mg SQ BID (WT < 150 kg, CrCl > 30 mL/min) AND *Sequential Compression Device (SCD) Assessment and Plan Assessment and Plan Assessment/plan: 1. Hepatic encephalopathy/hyperammonemia Patient with known cirrhosis secondary to hepatitis C infection status post treatment Ammonia level 92 Patient reports compliance with her lactulose however has not had a bowel movement since Tuesday Rifaximin Follow ammonia level 2. MARIA C Creatinine 2.38, was 1.21 on 12/10/17 Holding home Lasix Monitor renal function Avoid nephrotoxic agents 3. Urinary tract infection Patient discharged on Macrobid Repeat UA pending UA from 12/07/17 positive for Escherichia coli, sensitive to Rocephin 4. Diabetes mellitus Continue home insulin SSI Monitor blood glucose 5. Hypertension/CAD/CHF Continue home medications 6. Hypothyroidism Continue home Synthroid FEN Heart healthy diet Electrolytes: monitor and replete prn Heparin Physician Certification 2 Midnight Certification Type: Admission for Inpatient Services Order for Inpatient Services The services are ordered in accordance with Medicare regulations or non- Medicare payer requirements, as applicable. In the case of services not specified as inpatient-only, they are appropriately provided as inpatient services in accordance with the 2-midnight benchmark. Estimated LOS (days): 2 2 days is the estimated time the patient will need to remain in the hospital, assuming treatment plan goals are met and no additional complications. Post-Hospital Plan: Not yet determined Barb Martin MD Dec 13, 2017 02:12
[2017-12-13] MEDS: ACETAMINOPHEN/HYDROcodone 325 MG/7.5 MG TAB PO PRN ×2 (04:50→18:19)
[2017-12-13] MEDS: HEPARIN SODIUM - SQ 10,000 UNITS/ML VIAL SQ SCH ×3 (06:00→21:12)
[2017-12-13] MEDS: LEVOTHYROXINE SODIUM 88 MCG TAB PO SCH (07:00)
[2017-12-13] MEDS: PROPRANOLOL HCL LA 60 MG CAP PO SCH (09:00)
[2017-12-13] MEDS: SODIUM CHLORIDE 0.9% FLUSH 10 ML FLUSH IV FLUSH SCH ×2 (09:00→21:14)
[2017-12-13] MEDS: ENALAPRIL MALEATE 10 MG TAB PO SCH ×2 (09:00→21:13)
[2017-12-13] MEDS: INSULIN ASPAR PROT 70/30 1,000 UNITS/10 ML VIAL SQ SCH ×2 (09:00→22:52)
[2017-12-13] MEDS ORDERED: FUROSEMIDE 40 MG TAB PO SCH (09:00)
[2017-12-13] MEDS: cloNIDine HCL 0.1 MG TAB PO SCH ×2 (09:00→21:13)
[2017-12-13] MEDS: SPIRONOLACTONE 50 MG TAB PO SCH (09:00)
[2017-12-13] MEDS: METOLAZONE 2.5 MG TAB PO SCH (09:00)
[2017-12-13 09:33] LABS: AUTOMATED NEUTROPHIL # 13.7 TH/MM3 (1.8-7.7); BASOPHIL # 0.1 TH/MM3 (0-0.2); BASOPHIL % 0.6 % (0.0-2.0); EOSINOPHIL # 0.3 TH/MM3 (0-0.4); EOSINOPHIL % 1.9 % (0.0-4.0); HEMATOCRIT 33.9 % (35.0-46.0); HEMOGLOBIN 11.3 GM/DL (11.6-15.3); LYMPH % 13.6 % (9.0-44.0); LYMPHOCYTE # 2.4 TH/MM3 (1.0-4.8); MEAN CORPUSCULAR HEMOGLOBIN 34.7 PG (27.0-34.0); MEAN CORPUSCULAR HGB CONC 33.4 % (32.0-36.0); MEAN PLATELET VOLUME 8.9 FL (7.0-11.0); MONO % 7.1 % (0.0-8.0); MONOCYTE # 1.3 TH/MM3 (0-0.9); NEUT % 76.8 % (16.0-70.0); PLATELET COUNT 342 TH/MM3 (150-450); RED BLOOD COUNT 3.25 MIL/MM3 (4.00-5.30); RED CELL DISTRIBUTION WIDTH 13.7 % (11.6-17.2); WHITE BLOOD COUNT 17.8 TH/MM3 (4.0-11.0)
[2017-12-13 09:55] LABS: AST (GOT) 71 U/L (15-37); BICARBONATE 29.1 MEQ/L (21.0-32.0); BLOOD UREA NITROGEN 38 MG/DL (7-18); CALCIUM 9.2 MG/DL (8.5-10.1); CHLORIDE 99 MEQ/L (98-107); CREATININE 1.79 MG/DL (0.50-1.00); GLOMERULAR FILTRATION RATE 28 ML/MIN (>89); GLUCOSE,RANDOM 62 MG/DL (74-106); SODIUM (NA) 135 MEQ/L (136-145)
[2017-12-13 09:56] LABS: ALT (GPT) 51 U/L (10-53)
[2017-12-13 09:58] LABS: ALKALINE PHOSPHATASE 184 U/L (45-117); TOTAL BILIRUBIN ADULT 0.7 MG/DL (0.2-1.0); TOTAL PROTEIN 7.4 GM/DL (6.4-8.2)
[2017-12-13] MEDS: GABAPENTIN 300 MG CAP PO SCH ×2 (10:27→18:17)
[2017-12-13] MEDS: POTASSIUM CHLORIDE 8 MEQ CAP PO SCH (10:27)
[2017-12-13] MEDS: LACTULOSE SYRUP 20 GM/30 ML CUP PO SCH ×3 (10:27→21:12)
[2017-12-13] MEDS: PANTOPRAZOLE SOD 40 MG DELAYED RELEASE TAB PO SCH (10:27)
[2017-12-13] MEDS: cefTRIAXone INJ 1,000 MG in SODIUM CHLORIDE 0.9% INJ 100 ML IV SCH (10:28)
[2017-12-13] MEDS: ASPIRIN EC 81 MG TABEC PO SCH (10:28)
[2017-12-13] MEDS ORDERED: DEXTROSE 50% IN WATER 50 ML VIAL(D50) IV PUSH PRN (16:00)
[2017-12-13] MEDS ORDERED: GLUCAGON 1 MG/ML VIAL OTHER PRN (16:00)
[2017-12-13] MEDS: INSULIN NovoLIN REGULAR SUPPLEMENTAL SCALE SQ SCH ×2 (17:00→22:21)
--- NOTE | 2017-12-13 17:33 | EKG ---
Date Performed: 12/12/2017 Time Performed: 21:59:47 PTAGE: 72 years EKG: Sinus rhythm WITH OCCASIONAL SUPRAVENTRICULAR PREMATURE COMPLEXES BORDERLINE ECG PREVIOUS TRACING : 12/07/2017 20.40 DOCTOR: Candis Lay Interpretating Date/Time 12/13/2017 17:26:24
[2017-12-14] VITALS (7 sets, daily range): BP systolic 100–156; BP diastolic 56–82; PULSE 56–130; RESP 18–19; TEMP 96.6–98.4; O2SAT 96–100
[2017-12-14] MEDS: HEPARIN SODIUM - SQ 10,000 UNITS/ML VIAL SQ SCH ×3 (06:13→21:46)
[2017-12-14] MEDS: ACETAMINOPHEN/HYDROcodone 325 MG/7.5 MG TAB PO PRN ×3 (06:14→21:46)
[2017-12-14] MEDS: LEVOTHYROXINE SODIUM 88 MCG TAB PO SCH (06:14)
[2017-12-14 07:19] LABS: HEMATOCRIT 30.7 % (35.0-46.0); HEMOGLOBIN 10.6 GM/DL (11.6-15.3); MEAN CELL VOLUME 102.5 FL (80.0-100.0); MEAN CORPUSCULAR HEMOGLOBIN 35.6 PG (27.0-34.0); MEAN CORPUSCULAR HGB CONC 34.7 % (32.0-36.0); PLATELET COUNT 249 TH/MM3 (150-450); RED BLOOD COUNT 2.99 MIL/MM3 (4.00-5.30); RED CELL DISTRIBUTION WIDTH 13.5 % (11.6-17.2); WHITE BLOOD COUNT 10.5 TH/MM3 (4.0-11.0)
[2017-12-14 07:44] LABS: BICARBONATE 31.5 MEQ/L (21.0-32.0); BLOOD UREA NITROGEN 31 MG/DL (7-18); CALCIUM 9.2 MG/DL (8.5-10.1); CHLORIDE 102 MEQ/L (98-107); CREATININE 1.19 MG/DL (0.50-1.00); GLOMERULAR FILTRATION RATE 45 ML/MIN (>89); GLUCOSE,RANDOM 150 MG/DL (74-106); SODIUM (NA) 138 MEQ/L (136-145)
[2017-12-14] MEDS: INSULIN NovoLIN REGULAR SUPPLEMENTAL SCALE SQ SCH ×4 (08:34→21:47)
[2017-12-14] MEDS: INSULIN ASPAR PROT 70/30 1,000 UNITS/10 ML VIAL SQ SCH ×2 (08:35→21:51)
[2017-12-14] MEDS: LACTULOSE SYRUP 20 GM/30 ML CUP PO SCH ×4 (08:35→21:45)
[2017-12-14] MEDS: POTASSIUM CHLORIDE 8 MEQ CAP PO SCH (08:35)
[2017-12-14] MEDS: cloNIDine HCL 0.1 MG TAB PO SCH ×2 (08:35→21:45)
[2017-12-14] MEDS: PROPRANOLOL HCL LA 60 MG CAP PO SCH (08:37)
[2017-12-14] MEDS: ASPIRIN EC 81 MG TABEC PO SCH (08:37)
[2017-12-14] MEDS: METOLAZONE 2.5 MG TAB PO SCH (08:38)
[2017-12-14] MEDS: RIFAXIMIN 550 MG TAB PO SCH ×2 (08:38→21:46)
[2017-12-14] MEDS: GABAPENTIN 300 MG CAP PO SCH ×3 (08:38→17:21)
[2017-12-14] MEDS: PANTOPRAZOLE SOD 40 MG DELAYED RELEASE TAB PO SCH (08:38)
[2017-12-14] MEDS: SPIRONOLACTONE 50 MG TAB PO SCH (08:38)
[2017-12-14] MEDS: ENALAPRIL MALEATE 10 MG TAB PO SCH ×2 (08:39→21:46)
[2017-12-14] MEDS: SODIUM CHLORIDE 0.9% FLUSH 10 ML FLUSH IV FLUSH SCH ×2 (08:39→21:47)
[2017-12-14] MEDS: cefTRIAXone INJ 1,000 MG in SODIUM CHLORIDE 0.9% INJ 100 ML IV SCH (08:39)
--- NOTE | 2017-12-14 11:57 | HHI.PR ---
Subjective Remarks awake and alert oriented x 3 patient had 2 BMs today no urinary symptoms Objective Vitals Vital Signs Date Time Temp Pulse Resp B/P (MAP) Pulse Ox O2 Delivery O2 Flow Rate FiO2 12/14/17 08:00 60 12/14/17 08:00 98.4 58 18 156/69 (98) 98 12/14/17 05:00 98.0 60 19 135/62 (86) 99 12/14/17 00:00 97.5 66 18 138/63 (88) 96 12/13/17 21:00 97.0 58 17 172/73 (106) 100 12/13/17 20:50 97.5 66 18 138/63 (88) 96 12/13/17 17:46 98.2 58 20 152/64 (93) 99 12/13/17 16:00 60 12/13/17 12:06 97.6 57 20 114/56 (75) 100 12/13/17 12:00 57 I/O 12/13/17 12/13/17 12/13/17 12/14/17 12/14/17 12/14/17 07:00 15:00 23:00 07:00 15:00 23:00 Intake Total 120 ml 740 ml 1400 ml 650 ml Balance 120 ml 740 ml 1400 ml 650 ml Intake Oral 120 ml 740 ml 1400 ml 650 ml # Voids 1 3 2 2 # Bowel Movements 0 0 0 Result Diagram: 12/14/17 0708 12/14/17 0708 Objective Remarks awake and alert, oriented x 3,s peech clear anicteric lungs- no rales regular rhythm abdomen soft, nontender extrmeities no edema neuro exam- unremarkable A/P Assessment and Plan 72 years old female Hepatic encephalopathy/hyperammonemia- mild- MS improved Patient with known cirrhosis secondary to hepatitis C infection status post treatment continue Lactulose MARIA C- improved- I think this contributed mostly too to the MS chznge Creatinine 2.38, was 1.21 on 12/10/17 home was on 40 Lasix mg daily was held on admission restart at a lower dose- with better creatinine continue on aldactone adaily on Zaroxylyn- per patient only on and Tuesday Monitor renal function- d/w her Avoid nephrotoxic agents Urinary tract infection- contributed to MS change Patient discharged on Macrobid - on rocephin here - change to po Quinolone 4. Diabetes mellitus- erratic readings- per patient Continue home insulin SSI Monitor blood glucose 5. Hypertension/CAD/CHF- stable Continue home medications 6. Hypothyroidism Continue home Synthroid FEN Heart healthy diet Electrolytes: monitor and replete prn Heparin PT eval and treat out of bed to chair tid CM consult for Home health care vs SNF Alejandra Anna MD Dec 14, 2017 11:57
--- NOTE | 2017-12-14 12:56 | HHI.FF ---
Face to Face Verification Diagnosis: (1) Hepatitis C (2) Liver enzyme elevation (3) Cirrhosis Physical Therapy Order: Improve ambulation Home Health Nursing Order: Medical education Signs/symptoms of disease process Diabetic education Medication education-adverse effect Nursing assessment with vital signs I have seen patient Madison Lucia on 12/14/17. My clinical findings support the need for the requested home health care services because: Deconditioned w/ increased weakness Need for psychosocial assistance I certify that my clinical findings support that this patient is homebound because: Impaired cognitive ability/safety Need for psychosocial assistance Alejandra Anna MD Dec 14, 2017 12:56
[2017-12-14 15:04] LABS: HEMOGLOBIN A1C 7.6 % (4.3-6.0)
[2017-12-14] MEDS ORDERED: WALKER WHEELS/F1 MIS (15:04)
[2017-12-15 00:06] VITALS: BP 141/72; PULSE 90; RESP 18; TEMP 98.1; O2SAT 96
[2017-12-15 00:08] VITALS: BP 151/68; PULSE 63; RESP 18; TEMP 98.1
[2017-12-15] MEDS: ACETAMINOPHEN/HYDROcodone 325 MG/7.5 MG TAB PO PRN ×2 (01:36→08:26)
[2017-12-15 05:46] VITALS: BP 142/60; PULSE 55; RESP 18; TEMP 97.4; O2SAT 95
[2017-12-15] MEDS: HEPARIN SODIUM - SQ 10,000 UNITS/ML VIAL SQ SCH (06:04)
[2017-12-15] MEDS: LEVOTHYROXINE SODIUM 88 MCG TAB PO SCH (06:50)
[2017-12-15] MEDS: LACTULOSE SYRUP 20 GM/30 ML CUP PO SCH (08:22)
[2017-12-15] MEDS: INSULIN ASPAR PROT 70/30 1,000 UNITS/10 ML VIAL SQ SCH (08:22)
[2017-12-15] MEDS: PANTOPRAZOLE SOD 40 MG DELAYED RELEASE TAB PO SCH (08:23)
[2017-12-15] MEDS: POTASSIUM CHLORIDE 8 MEQ CAP PO SCH (08:23)
[2017-12-15] MEDS: ENALAPRIL MALEATE 10 MG TAB PO SCH (08:24)
[2017-12-15] MEDS: GABAPENTIN 300 MG CAP PO SCH (08:24)
[2017-12-15] MEDS: SPIRONOLACTONE 50 MG TAB PO SCH (08:25)
[2017-12-15] MEDS: ASPIRIN EC 81 MG TABEC PO SCH (08:27)
[2017-12-15] MEDS: cloNIDine HCL 0.1 MG TAB PO SCH (08:27)
[2017-12-15] MEDS: PROPRANOLOL HCL LA 60 MG CAP PO SCH (08:27)
[2017-12-15 08:28] VITALS: BP 129/60; PULSE 61; RESP 18; TEMP 98.3; O2SAT 98
[2017-12-15] MEDS: RIFAXIMIN 550 MG TAB PO SCH (08:28)
[2017-12-15] MEDS: SODIUM CHLORIDE 0.9% FLUSH 10 ML FLUSH IV FLUSH SCH (08:29)
[2017-12-15] MEDS: INSULIN NovoLIN REGULAR SUPPLEMENTAL SCALE SQ SCH (08:29)
--- NOTE | 2017-12-15 08:47 | HHI.PR ---
Subjective Remarks feels lgreat, looks great no dizziness no headaches po good Objective Vitals Vital Signs Date Time Temp Pulse Resp B/P (MAP) Pulse Ox O2 Delivery O2 Flow Rate FiO2 12/15/17 08:28 98.3 61 18 129/60 (83) 98 12/15/17 05:46 97.4 55 18 142/60 (87) 95 12/15/17 00:08 98.1 63 18 151/68 (95) 12/14/17 20:00 98.0 56 18 142/62 (88) 100 12/14/17 16:43 57 12/14/17 16:00 98.0 58 18 128/60 (82) 100 12/14/17 13:56 18 12/14/17 12:00 98.1 56 18 117/56 (76) 97 I/O 12/14/17 12/14/17 12/14/17 12/15/17 12/15/17 12/15/17 07:00 15:00 23:00 07:00 15:00 23:00 Intake Total 650 ml 100 ml Balance 650 ml 100 ml Intake Oral 650 ml IV Total 100 ml # Voids 2 2 2 # Bowel Movements 0 3 1 Result Diagram: 12/14/17 0708 12/14/17 0708 Objective Remarks awake and alert, oriented x 3, speech clear anicteric lungs- no rales regular rhythm abdomen soft, nontender extremities no edema, no calf tenderness neuro exam- unremarkable A/P Assessment and Plan 72 years old female Hepatic encephalopathy/hyperammonemia- mild- MS improved Patient with known cirrhosis secondary to hepatitis C infection status post treatment - continue Lactulose MARIA C- improved- I think this contributed mostly too to the MS change Creatinine 2.38, was 1.21 on 12/10/17 home was on 40 Lasix mg daily was held on admission restart at a lower dose- with better creatinine continue on aldactone adaily on Zaroxylyn- per patient only on and Tuesday Monitor renal function- d/w her as OP Avoid nephrotoxic agents Urinary tract infection- contributed to MS change Patient discharged on Macrobid - on rocephin here - changed to po levaquin- x 3 more days on DC Diabetes mellitus- erratic readings- per patient Continue home insulin SSI Monitor blood glucose Hypertension/CAD/CHF- stable Continue home medications Hypothyroidism Continue home Synthroid FEN Heart healthy diet Electrolytes: monitor and replete prn Heparin SQ PT eval and treat out of bed to chair tid CM consult for Home health care- DC today advise OP ff up with PCP - Alejandra Castaneda MD Dec 15, 2017 08:47
[2017-12-15] MEDS ORDERED: FURO20TA PO (08:57)
[2017-12-15] MEDS ORDERED: Lactulose Liq PO (08:57)
[2017-12-15] MEDS ORDERED: LEVA500T33 PO (08:57)
[2017-12-15] MEDS ORDERED: XIFA550T4 PO (08:57)
[2017-12-15] MEDS ORDERED: FUROSEMIDE 20 MG TAB PO SCH (09:00)
[2017-12-15] MEDS ORDERED: LEVOFLOXACIN 500 MG TAB PO SCH (09:00)
--- NOTE | 2017-12-15 09:00 | HHI.DS ---
Discharge Summary Admission Date Dec 12, 2017 at 23:51 Discharge Date: Dec 15, 2017 Admitting Diagnosis Dehydration, hepatic encephalopathy, leukocytosis (1) Hepatic encephalopathy ICD Code: K72.90 - Hepatic failure, unspecified without coma Diagnosis: Principal (2) Acute kidney injury ICD Code: N17.9 - Acute kidney failure, unspecified Diagnosis: Principal (3) UTI (urinary tract infection) ICD Code: N39.0 - Urinary tract infection, site not specified Diagnosis: Secondary (4) DM type 2 (diabetes mellitus, type 2) ICD Code: E11.9 - Type 2 diabetes mellitus without complications Diagnosis: Secondary Procedures none Brief History - From Admission 72-year-old female with a past medical history significant for hypertension, diabetes, CAD, CHF (no recent echo for comparison), Hepatitis C status post treatment with subsequent cirrhosis, history of TIA 2 and hypothyroidism was brought to the emergency department for evaluation of generalized weakness, nausea and vomiting that has been worsening since Tuesday. The patient has also had unsteady gait and suffered a fall yesterday. She was discharged from the hospital on Tuesday where she was admitted and treated for hepatic encephalopathy/hyperammonemia. She was discharged on lactulose 3 times a day. Of note, the patient has not had a bowel movement since she was discharged from the hospital. She reports compliance with her medications. The patient was also started on Macrobid for UTI. CBC/BMP: 12/14/17 0708 12/14/17 0708 Significant Findings Laboratory Tests Test 12/12/17 22:10 12/12/17 22:25 12/13/17 09:02 12/14/17 07:08 White Blood Count 15.1 TH/MM3 (4.0-11.0) 17.8 TH/MM3 (4.0-11.0) Red Blood Count 3.18 MIL/MM3 (4.00-5.30) 3.25 MIL/MM3 (4.00-5.30) 2.99 MIL/MM3 (4.00-5.30) Hemoglobin 10.9 GM/DL (11.6-15.3) 11.3 GM/DL (11.6-15.3) 10.6 GM/DL (11.6-15.3) Hematocrit 32.8 % (35.0-46.0) 33.9 % (35.0-46.0) 30.7 % (35.0-46.0) Mean Corpuscular Volume 103.2 FL (80.0-100.0) 104.0 FL (80.0-100.0) 102.5 FL (80.0-100.0) Mean Corpuscular Hemoglobin 34.2 PG (27.0-34.0) 34.7 PG (27.0-34.0) 35.6 PG (27.0-34.0) Neutrophils (%) (Auto) 77.4 % (16.0-70.0) 76.8 % (16.0-70.0) Monocytes (%) (Auto) 8.9 % (0.0-8.0) Neutrophils # (Auto) 11.7 TH/MM3 (1.8-7.7) 13.7 TH/MM3 (1.8-7.7) Monocytes # (Auto) 1.3 TH/MM3 (0-0.9) 1.3 TH/MM3 (0-0.9) Blood Urea Nitrogen 41 MG/DL (7-18) 38 MG/DL (7-18) 31 MG/DL (7-18) Creatinine 2.38 MG/DL (0.50-1.00) 1.79 MG/DL (0.50-1.00) 1.19 MG/DL (0.50-1.00) Albumin 3.1 GM/DL (3.4-5.0) 3.0 GM/DL (3.4-5.0) Alkaline Phosphatase 181 U/L (45-117) 184 U/L (45-117) Aspartate Amino Transf (AST/SGOT) 76 U/L (15-37) 71 U/L (15-37) Estimat Glomerular Filtration Rate 20 ML/MIN (>89) 28 ML/MIN (>89) 45 ML/MIN (>89) Creatine Kinase MB 6.6 NG/ML (0.5-3.6) Ammonia 92 MCMOL/L (11-32) 77 MCMOL/L (11-32) Random Glucose 62 MG/DL (74-106) 150 MG/DL (74-106) Sodium Level 135 MEQ/L (136-145) Hemoglobin A1c 7.6 % (4.3-6.0) PE at Discharge awake and alert, oriented x 3, speech clear anicteric lungs- no rales regular rhythm abdomen soft, nontender extremities no edema, no calf tenderness neuro exam- unremarkable Pt update on day of discharge awake and alert, no pain, afebrile good po, luns clear no edema, no abdominal pain Hospital Course 72 years old female Hepatic encephalopathy/hyperammonemia- mild- MS improved Patient with known cirrhosis secondary to hepatitis C infection status post treatment - continue Lactulose- to get BM- 3-4x day - continue on Rifaximin MARIA C- improved- I think this contributed mostly too to the MS change Creatinine 2.38, was 1.21 on 12/10/17 home was on 40 Lasix mg daily was held on admission restart at a lower dose- with better creatinine continue on aldactone daily on Zaroxylyn- per patient only on and Tuesday Monitor renal function- d/w her as OP Avoid nephrotoxic agents Urinary tract infection- contributed to MS change Patient discharged on Macrobid - on rocephin here - changed to po levaquin- x 3 more days on DC Diabetes mellitus- erratic readings- per patient Continue home insulin SSI Monitor blood glucose Hypertension/CAD/CHF- stable Continue home medications Hypothyroidism Continue home Synthroid FEN Heart healthy diet Electrolytes: monitor and replete prn Heparin SQ PT eval and treat out of bed to chair tid CM consult for Home health care- DC today advise OP ff up with PCP - Dr. Mcnally Pt Condition on Discharge: Stable Discharge Disposition: Disch w/ Home Health Serv Discharge Time: <= 30 minutes Discharge Instructions DIET: Follow Instructions for: Heart Healthy Diet, Diabetic Diet Speech Therapy-Diet Recommends: Regular Activities you can perform: Weight Bearing as Kavitha Activities to Avoid: Prolonged Standing, Strenuous Activity Follow up Referrals: Gastroenterology - 1 Week with Vish Gaitan MD PCP Follow-up - 3-5 Days with DALILA New Orders: BASIC METABOLIC PROF - 12/19/17 New Medications: Walker with Front Wheels (Walker with Front Wheels) 1 Mis Mis EA .ROUTE DIRECTED for kaden, #1 0 Refills Furosemide (Furosemide) 20 Mg Tab 20 MG PO DAILY for Cirrhosis for 30 Days, #30 TAB Levofloxacin (Levaquin) 500 Mg Tablet 500 MG PO DAILY for UTI for 3 Days, #3 TAB Rifaximin (Xifaxan) 550 Mg Tab 550 MG PO BID for HEpEncep for 30 Days, #60 TAB [Lactulose Liq] () 30 ML SYRP 30 ML PO QID for encephalopathy for 30 Days, #1 BOTTLE Continued Medications: Allopurinol (Allopurinol) 300 Mg Tab 300 MG PO DAILY for Gout, #30 TAB 0 Refills Ascorbic Acid (Vitamin C) 250 Mg Tab 1000 MG PO DAILY for Nutritional Supplement, TAB [address] (Aspirin DR) 81 Mg Tabdr 81 MG PO DAILY, TAB 0 Refills Cholecalciferol (Vitamin D-1000) 1,000 Unit Tab 1000 UNITS PO BID for Nutritional Supplement, #1 BOTTLE 0 Refills Clonidine (Clonidine) 0.1 Mg Tab 0.1 MG PO BID for Blood Pressure Management, #60 TAB 0 Refills Diclofenac Topical (Diclofenac Topical) 1% Gel 1 APPLIC TOPICAL QID for Pain Management, #100 GM 0 Refills Dicyclomine (Dicyclomine) 10 Mg Cap 10 MG PO DAILY for Bowel Management, CAP 0 Refills Enalapril (Enalapril) 20 Mg Tab 20 MG PO BID, #30 TAB [address] (Esomeprazole DR) 40 Mg Capdr 40 MG PO DAILY, #30 CAP 0 Refills Gabapentin (Gabapentin) 600 Mg Tab 600 MG PO TID, #90 TAB 0 Refills Hydrocodone/Acetaminophen (Hydrocodon-Acetamin 7.5-325/15) 7.5 Mg-325 Mg/15 Ml ( 15 Ml) Solution 1 TAB PO DAILY Insulin Lispro Protamine-Lispro 75-25 Inj (Humalog Mix 75-25 Inj) 1,000 Unit/10 Ml Susp 90 UNITS SQ BID for Blood Sugar Management, VIAL 0 Refills i-Ctokuyxlhaue-Gnwdgao B6-Vitmin B12 (Foltx) 1.13-25-2 Mg Tab 1 TAB PO DAILY for Nutritional Supplement, TAB 0 Refills Levothyroxine (Levothyroxine) 88 Mcg Tab 88 MCG PO DAILY for Thyroid, #30 TAB 0 Refills Metolazone (Metolazone) 2.5 Mg Tab 2.5 MG PO DAILY, #30 TAB 0 Refills Propranolol (Propranolol) 60 Mg Tab 60 MG PO DAILY, #60 TAB 0 Refills Ropinirole (Ropinirole) 0.25 Mg Tab 0.25 MG PO HS, #30 TAB 0 Refills Spironolactone (Spironolactone) 50 Mg Tab 50 MG PO DAILY, #30 TAB 0 Refills Discontinued Medications: Furosemide (Furosemide) 40 Mg Tab 40 MG PO DAILY, #30 TAB 0 Refills Nitrofurantoin Monohydrate Macrocrystals (Macrobid) 100 Mg Cap 100 MG PO BID for Infection for 5 Days, #9 CAP 0 Refills Pt to take first dose tonight [Lactulose Liq] () 30 ML SYRP 30 ML PO TID for 30 Days Alejandra Anna MD Dec 15, 2017 09:00
[2017-12-15 09:47] VITALS: RESP 18
[2017-12-16] MEDS ORDERED: METOLAZONE 2.5 MG TAB PO SCH (13:00)
== END 2017-12-15 11:30 | disposition home health service (06) | DRG 442 ==
LOC: NEPC 21:50 → NEDA 23:51 → N05B 12-13 01:45
PROVIDERS: ADMIT Internal Medicine; ATTEND Internal Medicine
DX: K72.90 Hepatic failure, unspecified without coma (principal); N17.9 Acute kidney failure, unspecified; E11.22 Type 2 diabetes mellitus with diabetic chronic kidney disease; I13.0 Hypertensive heart and chronic kidney disease with heart failure and stage 1 through stage 4 chronic kidney disease, or unspecified chronic kidney disease; I50.9 Heart failure, unspecified; E11.42 Type 2 diabetes mellitus with diabetic polyneuropathy; N39.0 Urinary tract infection, site not specified; G20 Parkinson's disease; E86.0 Dehydration; N18.9 Chronic kidney disease, unspecified; I25.10 Atherosclerotic heart disease of native coronary artery without angina pectoris; K74.60 Unspecified cirrhosis of liver; E03.9 Hypothyroidism, unspecified; E78.00 Pure hypercholesterolemia, unspecified; K21.9 Gastro-esophageal reflux disease without esophagitis; M06.9 Rheumatoid arthritis, unspecified; M81.0 Age-related osteoporosis without current pathological fracture; M79.7 Fibromyalgia; F41.9 Anxiety disorder, unspecified; M19.90 Unspecified osteoarthritis, unspecified site; R26.81 Unsteadiness on feet; Z91.81 History of falling; Z79.4 Long term (current) use of insulin; Z86.73 Personal history of transient ischemic attack (TIA), and cerebral infarction without residual deficits; Z86.19 Personal history of other infectious and parasitic diseases
CPT/HCPCS: 80048; 80053; 82140; 82550; 82552; 82948; 83036; 83690; 83735; 83880; 84484; 85025; 85027; 85610; 85730; 93005; 96361; 96374; J0696; J1644; J1815; J2405; J7050

== ENCOUNTER → 2018-03-22 | Day surgery (SDC) | payer MEDICARE ==
[~2018-03-22] VITALS: Ht 157.5 cm; Wt 99.0 kg
[~2018-03-22] MED LIST changes: +CHLORHEXIDINE GLUCONATE 2 % 1 PACK (2 CLOTHS) TOPICAL PRN; +CYCLOPENTOLATE HCL 1% OPHT SOLN 2 ML BTL LEFT EYE SCH; +CYCLOPENTOLATE HCL 1% OPHT SOLN 2 ML BTL ONE; +EPINEPHrine HCL PF/SF (1:1000) 1 MG/ML AMP I-OCULAR ONE; +FURO20TA PO; -FURO40TA PO; +HUMA75IN SQ; +HYALURONIDASE/LIDOCAINE/BUPIVACAINE 5 ML SYR LEFT EYE ONE; +LACT10SO PO; +LACTATED RINGER'S 1000 ML IV PRN; +LEVA500T33 PO; -MACR100C2 PO; +METOPROLOL TARTRATE 25 MG TAB PO PRN; +MIRA3350 PO; +MORP1TAB24 PO; +NALO1TAB2 PO; +PHENYLEPHRINE HCL 10% OPTH SOLN 5 ML BTL LEFT EYE SCH; +PHENYLEPHRINE HCL 10% OPTH SOLN 5 ML BTL ONE; +POVIDONE IODINE 5% (ANTISEPSIS KIT) 4 APPLICATIONS EACH NARE PRN; +PROPOFOL 200 MG/20 ML AMP ONE; +SODIUM CHLORID 0.9% 500 ML IV PRN; +SULF500T3 PO; +TETRACAINE 0.5% OPTH SOLN 4 ML BTL LEFT EYE SCH; +TETRACAINE 0.5% OPTH SOLN 4 ML BTL ONE; +TOBRAMYCIN/DEXAMETHASONE OPTH OINT 3.5 GM TUBE ONE; +TROPICAMIDE 1% OPHT SOLN 15 ML BTL LEFT EYE SCH; +TROPICAMIDE 1% OPHT SOLN 15 ML BTL ONE; +VISCOAT OPHT IRRIG SOLN 0.75 ML SYRINGE ONE; +VOLT1GEL16 TOPICAL; +WALKER WHEELS/F1 MIS; +XIFA550T4 PO
[2018-03-22 07:05] VITALS: PULSE 57
[2018-03-22] MEDS: PHENYLEPHRINE HCL 10% OPTH SOLN 5 ML BTL LEFT EYE SCH ×3 (07:10→07:20)
[2018-03-22] MEDS: CYCLOPENTOLATE HCL 1% OPHT SOLN 2 ML BTL LEFT EYE SCH ×3 (07:10→07:20)
[2018-03-22] MEDS: TETRACAINE 0.5% OPTH SOLN 4 ML BTL LEFT EYE SCH ×3 (07:10→07:20)
[2018-03-22] MEDS: TROPICAMIDE 1% OPHT SOLN 15 ML BTL LEFT EYE SCH ×3 (07:10→07:20)
[2018-03-22 07:49] VITALS: PULSE 57
[2018-03-22 08:50] VITALS: TEMP 98
--- NOTE | 2018-03-22 08:58 | PD.OP ---
Operative Report Date of Surgery: March 22, 2018 Preoperative Diagnosis: (1) Nuclear sclerotic cataract of left eye Postoperative Diagnosis: (1) Pseudophakia of left eye Procedure: phacoemulsification and intraocular lens implant left eye Anesthesia: retrobulbar block, MAC Surgeon: Ayala Singh Auto Glass Technician(s): none Operation and Findings: Patient was consented for surgery, given a retrobulbar block by anesthesia, and taken back to the operating room. She was prepped and draped in the usual sterile fashion for ophthalmic surgery. A wire lid speculum was placed in the left eye. A paracentesis incision was created at the 5 o'clock position on the limbus. Vision blue dye and viscoelastic was injected into the anterior chamber. The main incision was created at the 2 o'clock position on the limbus with a 2.4 mm keratome. A continuous curvilinear capsulorrhexis was made on the anterior lens capsule. Hydrodissection was used to separate the lens from the capsule. Phacoemulsification was used to remove the lens nucleus material. Irrigation and aspiration was used to remove the remaining cortical material. The lens implant ([id number] SN [id number]) was placed in the capsular bag. Viscoelastic was removed with irrigation and aspiration. The incisions were irrigated and found to be watertight. Tobradex ointment, a patch, and shield were placed on the left eye. The patient was sent to PACU in stable condition. Ayala Singh MD March 22, 2018 08:58
[2018-03-22 09:13] VITALS: BP 159/60; PULSE 55; RESP 16; O2SAT 95
== END | disposition home or self-care (01) ==
LOC: PHSDC 06:31
PROVIDERS: ATTEND Ophthalmology
DX: H25.12 Age-related nuclear cataract, left eye (principal)
CPT/HCPCS: 00142; 66984; 82948; J0171; J7040; V2632